=== PATIENT | male | born 1950 | race Caucasian/White ===

== ENCOUNTER → 2017-02-02 | Outpatient (CLI) | payer OTHER ==
[~2017-02-02] MED LIST: ALLO100T PO; AMLO5TAB2 PO; ASPI-146 PO; CALC1TAB12 PO; COMMODE 3-IN-11 MIS; CPMMACHINE; ENOX40IN SQ; LISI10TA3 PO; MIRA50TA PO; NORC5TAB PO; VITA1000 PO; WALKER WHEELS/F1 MIS
== END ==
LOC: CPRE 08:59
PROVIDERS: ATTEND Orthopaedic Surgery
DX: Z01.818 Encounter for other preprocedural examination (principal)

== ENCOUNTER 2017-02-18 06:33 | Inpatient (IN) | payer OTHER, MEDICARE ==
[~2017-02-18] VITALS: Ht 176.5 cm; Wt 120.5 kg
[~2017-02-18 06:33] MED LIST changes: -ASPI-146 PO; -COMMODE 3-IN-11 MIS; -CPMMACHINE; -ENOX40IN SQ; -NORC5TAB PO; -WALKER WHEELS/F1 MIS
--- NOTE | 2017-02-18 06:56 | HHI.DCPOC ---
Discharge Care Plan Diagnosis: (1) Primary localized osteoarthrosis, lower leg (2) Status post total knee replacement, left Your Health Problems Are: Difficulty with ADL Goals to Promote Your Health * To prevent worsening of your condition and complications * To maintain your health at the optimal level Directions to Meet Your Goals Take your medications as prescribed Follow your dietary instruction Follow activity as directed Keep your appointments as scheduled Take your immunizations and boosters as scheduled If your symptoms worsen call your PCP, if no PCP go to Urgent Care Center or Emergency Room Smoking is Dangerous to Your Health. Avoid second hand smoke Call the 24-hour hour crisis hotline for domestic abuse at Fabián Becerril Feb 18, 2017 06:56
[2017-02-18] MEDS ORDERED: VANCOMYCIN 1000 MG/NS 250 ML (for <70 kg) IV SCH ×2 (07:00)
[2017-02-18] MEDS ORDERED: POVIDONE IODINE 7.5% SCRUB 118 ML BOTTLE TOPICAL SCH (07:00)
[2017-02-18] MEDS ORDERED: ceFAZolin 2 GM PREMIX 50 ML IV SCH (07:00)
[2017-02-18] MEDS ORDERED: METOPROLOL TARTRATE 25 MG TAB PO PRN (07:15)
[2017-02-18] MEDS ORDERED: CHLORHEXIDINE GLUCONATE 2 % 1 PACK (2 CLOTHS) TOPICAL PRN (07:15)
[2017-02-18] MEDS ORDERED: INSULIN HUMAN REGULAR 1,000 UNITS/10 ML VIAL SQ PRN (07:15)
[2017-02-18] MEDS ORDERED: LACTATED RINGER'S 1000 ML IV PRN (07:15)
[2017-02-18] MEDS ORDERED: SODIUM CHLORID 0.9% 500 ML IV PRN (07:15)
[2017-02-18] MEDS ORDERED: POVIDONE IODINE 5% (ANTISEPSIS KIT) 4 APPLICATIONS EACH NARE PRN (07:15)
[2017-02-18] MEDS ORDERED: DEXAMETHASONE SOD PHOS 20 MG/5 ML VIAL IV SCH (07:15)
[2017-02-18] MEDS ORDERED: GENTAMICIN SULFATE 80 MG/2 ML VIAL ONE (09:32)
[2017-02-18] MEDS ORDERED: FAMOTIDINE 20 MG/2 ML VIAL ONE (09:40)
[2017-02-18] MEDS ORDERED: ACETAMINOPHEN 1000 MG/100 ML 100 ML IV ONE (09:40)
[2017-02-18] MEDS ORDERED: ROPIVACAINE PERI-ARTICULAR INJECTION. P-ARTICULR SCH ×5 (10:00)
[2017-02-18] MEDS ORDERED: TRANEXAMIC ACID IV SCH ×2 (10:00→14:00)
[2017-02-18] MEDS ORDERED: SODIUM CHLORIDE 0.9% IV SCH ×2 (10:00→14:00)
[2017-02-18] MEDS ORDERED: BUPIVACAINE HCL PF 0.5% 30 ML VIAL ONE (10:08)
[2017-02-18] MEDS ORDERED: GLYCOPYRROLATE 1 MG/5 ML SYRINGE IV PUSH ONE (12:00)
[2017-02-18] MEDS ORDERED: ONDANSETRON HCL 4 MG/2 ML VIAL IV PUSH ONE (12:00)
[2017-02-18] MEDS ORDERED: MIDAZOLAM HCL 2 MG/2 ML VIAL IV ONE (12:00)
[2017-02-18] MEDS ORDERED: NEOSTIGMINE 3 MG/3 ML SYR IV ONE (12:00)
[2017-02-18] MEDS ORDERED: ROCURONIUM INJ 50 MG/5 ML SYRINGE IV PUSH ONE (12:00)
[2017-02-18] MEDS ORDERED: ESMOLOL HCL 100 MG/10 ML VIAL IV ONE (12:00)
[2017-02-18] MEDS ORDERED: PHENYLEPH/NS 1000 MCG/10 ML SYR IV ONE (12:00)
[2017-02-18] MEDS ORDERED: LABETALOL HCL 100 MG/20 ML VIAL IV ONE (12:00)
[2017-02-18] MEDS ORDERED: LIDOCAINE HCL 1% PF 5 ML AMPULE OTHER ONE (12:00)
[2017-02-18] MEDS ORDERED: PROPOFOL 200 MG/20 ML AMP IV ONE (12:00)
--- NOTE | 2017-02-18 12:24 | PD.OP ---
cc: Fernando Olson MD Operative Report Date of Surgery: Feb 18, 2017 Preoperative Diagnosis: Left knee severe osteoarthritis Postoperative Diagnosis: Same Procedure: Left total knee arthroplasty Anesthesia: Gen. and adductor canal block Surgeon: Fernando Olson Post Closer(s): ERIN Galvan The surgical procedure was assisted by my Advanced Registered Nurse Practitioner. My TINNING EQUIPMENT TENDER presence was necessary throughout this case for the manipulation and positioning of the surgical extremity. My TINNING EQUIPMENT TENDER was assisting me throughout the duration of this procedure. The skill set of an Advance Registered Nurse Practitioner was medically necessary to complete this procedure. During the surgical case, the director medical surgical was working at the back table and the Advance Registered Nurse Practitioner was directly assisting me. Operation and Findings: IMPLANTS: DePuy Attune: Patella: size 38. Femur, posterior stabilized size 7. Tibia, rotating platform size 5. Tibial insert, rotating platform, posterior stabilized size 5 mm thickness. ESTIMATED BLOOD LOSS: 150 cc TOURNIQUET TIME: 56 minutes at 250 mmHg pressure. JUSTIFICATION FOR PROCEDURE: The patient has end-stage osteoarthritis to the knee. There is an attached conservative measures pathway form in the chart that describes the nonoperative measures that were undertaken prior to consideration of surgical management. The patient understood the risks and benefits of surgical management. See my office notes for further details PROCEDURE: The patient was brought back to the operative theatre. Adequate anesthesia was obtained. The patient received intravenous Ancef and vancomycin. The lower extremity was prepped and draped in the usual sterile fashion.The leg was exsanguinated, the tourniquet was raised. A standard anterior incision was performed followed by medial parapatellar arthrotomy was performed. End-stage arthritis was identified. Osteotomy of the patella was performed. We drilled holes for the patella. We trialed the patella component. We placed an intramedullary guide into the distal femur. We ultimately resected or 14 mm off of the distal femur in 5 degrees of valgus. The remnants of the ACL and PCL were resected. Osteotomy of the proximal tibia was performed, resecting 9 mm off of the medial side (after initial cut of 5 mm) . This was done with 3 degrees of posterior slope using an extramedullary guide. The distal end of the guide was placed in the mid aspect of the ankle. The femur was sized, and four chamfer cuts were completed in 3 of external rotation. We then cut the central box in the distal femur to replace the PCL. We resected the remnants of the menisci and removed osteophytes off of the femur and tibia. We then trialed the knee. We punched the tibia for the keel, and then used standard technique to cement in components. Excess cement was removed. We trialed the knee again and the final polyethylene thickness was chosen to provide extension to 0 degrees, and flexion of 140 degrees to gravity. The ligaments were appropriately balanced. Lateral release was necessary to obtain excellent patellofemoral tracking. The tourniquet was released and adequate hemostasis was obtained. An intra- articular injection of a ropivacaine cocktail was injected. The posterior knee was inspected for excess cement, which was removed. The final polyethylene was put into position after thorough irrigation. We then closed deep fascia with a #2 Stratafix followed by skin with 2-0 Vicryl followed by cliff. Postop plan is to weight-bear as tolerated. DVT prophylaxis will be performed with Adelina, JUDAH olra, early mobilization, and Lovenox followed by aspirin. Fernando Olson MD Feb 18, 2017 12:24
[2017-02-18] MEDS ORDERED: ASPI-146 PO (12:25)
[2017-02-18] MEDS ORDERED: NORC5TAB PO (12:25)
[2017-02-18] MEDS ORDERED: ENOX40IN SQ (12:25)
[2017-02-18] MEDS ORDERED: ONDANSETRON HCL 4 MG/2 ML VIAL IVP PRN (12:30)
[2017-02-18] MEDS ORDERED: MAGNESIUM HYDROXIDE SUSP 30 ML CUP PO PRN (12:30)
[2017-02-18] MEDS ORDERED: Post-op Orders (for Pharmacy) MISC XX ONE (12:30)
[2017-02-18] MEDS ORDERED: SODIUM CHLORIDE 0.9% FLUSH 5 ML FLUSH IVF PRN (12:30)
[2017-02-18] MEDS ORDERED: BISACODYL 10 MG SUPP RECTAL PRN (12:30)
[2017-02-18] MEDS ORDERED: NALOXONE HCL 0.4 MG/ML AMP IV PUSH PRN (12:30)
[2017-02-18] MEDS ORDERED: ALUMINUM/MAGNESIUM/SIMETH 30 ML CUP PO PRN (12:30)
[2017-02-18] MEDS ORDERED: diphenhydrAMINE HCL 50 MG/ML VIAL IV PUSH PRN (12:30)
[2017-02-18] MEDS ORDERED: ZOLPIDEM TARTRATE 5 MG TAB PO PRN (12:30)
[2017-02-18] MEDS ORDERED: DO NOT ADM ANY ANTICOAGULANT DRUGS PRN (12:39)
[2017-02-18] MEDS ORDERED: *RESP: ALBUTEROL 2.5 MG/3 ML NEB (PRN) PERIprocedural Use ONLY NEB ONE (12:59)
[2017-02-18] MEDS ORDERED: *MEPERIDINE 25 MG INJ VIAL PERIprocedural Use ONLY ONE (13:04)
[2017-02-18] MEDS ORDERED: *morphine SULFATE 8 MG/ML PERIprocedure ONLY ONE (13:47)
[2017-02-18] MEDS: SODIUM CHLOR 0.9% 1000 ML INJ 1,000 ML IV SCH ×2 (14:00→22:20)
--- NOTE | 2017-02-18 14:08 | RADRPT ---
EXAM DATE/TIME: 02/18/2017 13:18 [facility] COMPARISON: No previous studies available for comparison. INDICATIONS : Post op left total knee. MEDICAL HISTORY : None. SURGICAL HISTORY : None. ENCOUNTER: Initial ACUITY: 1 day PAIN SCORE: 10/10 LOCATION: Left Knee FINDINGS: 2 views of the knee show a total knee prosthesis in good position. No fracture or dislocation is obse rved. Soft tissue swelling is noted. Air and fluid noted within the joint. CONCLUSION: Total knee arthroplasty in good position. Isidoro Gorman Jr., MD on February 18, 2017 at 14:06 Board Certified Radiologist. This report was verified electronically.
--- NOTE | 2017-02-18 15:30 | PD.CONS ---
HPI Service [facility] Hospitalists Consult Requested By Orthopedic surgery Reason for Consult Medical management. Primary Care Physician Daniel Andrea MD (Paul) Diagnoses: (1) Osteoarthritis of left knee History of Present Illness Mr. Chaudhry is a pleasant 67 year old male with a history of gout, hypertension, prostate cancer who underwent elective left total knee arthroplasty today. He has been experiencing left knee pain despite conservative, non-surgical management. Hospitalist service was consulted for medical management. At the time of this interview at PACU, patient is doing well. No acute concerns. Denies any chest pain, shortness of breath, fever, chills. Denies any changes in bowel or bladder habits. Currently, pain is well controlled. Review of Systems Except as stated in HPI: all other systems reviewed are Neg Past Family Social History Allergies: Coded Allergies: No Known Allergies (Unverified , 02/18/17) Past Medical History Prostate cancer Left knee osteoarthritis Gout Hypertension Past Surgical History Right wrist surgery due to osteomyelitis Cholecystectomy Active Ordered Medications Current Medications Medications (Trade) Dose Ordered Sig/Whit Route Start Time Stop Time Status Last Admin (Betadine 7.5% Scrub) 1 applic ONCE TOPICAL 02/18/17 07:00 02/21/17 06:59 02/18/17 07:00 Cefazolin Sodium/ Dextrose 50 ml @ 100 mls/hr FLIGHT TEST DATA ACQUISITION TECHNICIAN IV 02/18/17 07:00 02/21/17 06:59 02/18/17 10:31 Vancomycin HCl 1000 mg/Sodium Chloride 250 ml @ 250 mls/hr FLIGHT TEST DATA ACQUISITION TECHNICIAN IV 02/18/17 07:00 02/21/17 06:59 02/18/17 10:31 (Decadron Inj) 10 mg FLIGHT TEST DATA ACQUISITION TECHNICIAN IV 02/18/17 07:15 02/18/17 23:59 02/18/17 07:41 Lactated Ringer's 1,000 ml @ 30 mls/hr Q24H PRN IV 02/18/17 07:15 02/21/17 07:14 02/18/17 07:30 Sodium Chloride 500 ml @ 30 mls/hr [id number] PRN IV 02/18/17 07:15 02/21/17 07:14 (Lopressor) 25 mg FLIGHT TEST DATA ACQUISITION TECHNICIAN PRN PO 02/18/17 07:15 02/21/17 07:14 (Betadine 5% Antisepsis Kit) 1 applic FLIGHT TEST DATA ACQUISITION TECHNICIAN PRN EACH NARE 02/18/17 07:15 02/21/17 07:14 (Chlorhexidine 2% Cloth) 3 pack FLIGHT TEST DATA ACQUISITION TECHNICIAN PRN TOPICAL 02/18/17 07:15 02/21/17 07:14 02/18/17 06:50 (NovoLIN R INJ) See Protocol Table ... FLIGHT TEST DATA ACQUISITION TECHNICIAN PRN SQ 02/18/17 07:15 02/21/17 07:14 (Zyloprim) 100 mg DAILY PO 02/19/17 09:00 (Norvasc) 5 mg DAILY PO 02/19/17 09:00 (Prinivil) 10 mg DAILY PO 02/19/17 09:00 ([place] La) 4 mg DAILY PO 02/19/17 09:00 Sodium Chloride 1,000 ml @ 100 mls/hr Q10H IV 02/18/17 12:20 02/18/17 14:00 (NS Flush) 2 ml UNSCH PRN IVF 02/18/17 12:30 (NS Flush) 2 ml BID IVF 02/18/17 21:00 Cefazolin Sodium 1000 mg/Sodium Chloride 100 ml @ 200 mls/hr Q6H IV 02/18/17 16:00 02/19/17 04:29 02/18/17 16:00 (Decadron Inj) 10 mg ONCE ONCE IV 02/19/17 07:45 02/19/17 07:46 (Lovenox Inj) 40 mg Q24H SQ 02/19/17 11:45 02/28/17 11:46 ([place] 5-325 Mg) 1 tab Q4H PRN PO 02/18/17 12:30 ([place] 5-325 Mg) 2 tab Q4H PRN PO 02/18/17 12:30 (Theragran M Tab) 1 tab BID PO 02/19/17 21:00 04/20/17 20:59 (Zofran Inj) 4 mg Q6H PRN IVP 02/18/17 12:30 (Colace) 100 mg BID PO 02/19/17 21:00 (Mag-Al Plus Susp Liq) 30 ml Q6H PRN PO 02/18/17 12:30 (Ambien) 5 mg HS PRN PO 02/18/17 12:30 (Dulcolax Supp) 10 mg DAILY PRN RECTAL 02/18/17 12:30 (Milk Of Magnesia Liq) 30 ml DAILY PRN PO 02/18/17 12:30 (Narcan Inj) 0.4 mg UNSCH PRN IV PUSH 02/18/17 12:30 (Benadryl Inj) 25 mg Q6H PRN IV PUSH 02/18/17 12:30 (Morphine Inj) 2 mg Q3H PRN IV PUSH 02/18/17 12:30 02/18/17 20:01 Miscellaneous Information ALL NURSING DEPARTME... UNSCH PRN .XX 02/18/17 12:39 02/19/17 12:38 Family History Father - heart disease. No family history of Alzheimer's or Parkinson's. Social History Patient quit smoking about 15 years ago. He drinks 4-5 martinis a day. Denies using illicit drugs. Physical Exam Vital Signs Vital Signs Date Time Temp Pulse Resp B/P (MAP) Pulse Ox O2 Delivery O2 Flow Rate FiO2 02/18/17 13:52 15 02/18/17 13:52 15 02/18/17 12:45 97.6 93 15 145/96 (112) 96 Simple Mask 8 Physical Exam GENERAL: This is a well-nourished, well-developed patient, in no apparent distress. SKIN: No rashes, ecchymoses or lesions. Warm and dry. HEAD: Atraumatic. Normocephalic. No temporal or scalp tenderness. EYES: Pupils equal round and reactive. No injection or drainage. ENT: Nose without bleeding, purulent drainage or septal hematoma. Airway patent. NECK: Trachea midline. No lymphadenopathy. Supple, nontender, no meningeal signs. CARDIOVASCULAR: Regular rate and rhythm without murmurs, gallops, or rubs. No JVD. RESPIRATORY: Clear to auscultation. Breath sounds equal bilaterally. No wheezes , rales, or rhonchi. GASTROINTESTINAL: Abdomen soft, non-tender, nondistended. No guarding. MUSCULOSKELETAL: Extremities without clubbing, cyanosis, or edema. s/p Left TKA. Able to move all toes. NEUROLOGICAL: Awake and alert. Cranial nerves II through XII intact. No focal neurological deficits. Normal speech. Imaging Last Impressions Knee X-Ray 02/18/17 1220 Signed Impressions: Service Date/Time: Saturday, February 18, 2017 13:18 - CONCLUSION: Total knee arthroplasty in good position. Isidoro Sherif Santoro MD Assessment and Plan Problem List: (1) Osteoarthritis of left knee ICD Code: M17.12 - Unilateral primary osteoarthritis, left knee (2) HTN (hypertension) ICD Code: I10 - Essential (primary) hypertension (3) History of prostate cancer ICD Code: Z85.46 - Personal history of malignant neoplasm of prostate Assessment and Plan Mr. Chaudhry is a pleasant 67 year old male with a history of left knee osteoarthritis refractory to non-surgical treatments, hypertension who underwent left total knee replacement. Post-surgery, patient is doing well. Pain is well controlled. No acute concerns. - Left knee osteoarthritis. - s/p Left TKA - [place] and Morphine PRN for pain management - Bowel regimen in place. - Lovenox 40mg Q24hrs starting 02/19/2017. - Hypertension - Amlodipine 5mg Qday, Lisinopril 10mg Qday. Currently normotensive. - Gout - Continue Allopurinol. - Hx of Prostate cancer. - Continue Tamsulosin. Full code. Lovenox starting 02/19/2017. Thank you for the consult. We will continue to follow this patient with you. Darcie Dinero DO Feb 18, 2017 15:30
[2017-02-18] MEDS: MORPHINE SULFATE 4 MG/ML INJ IV PUSH PRN ×2 (15:55→20:01)
--- NOTE | 2017-02-18 16:30 | HHI.FF ---
Face to Face Verification Diagnosis: (1) Primary localized osteoarthrosis, lower leg (2) Status post total knee replacement, left Physical Therapy Gait training, Transfer training, bed to chair Knee: Total knee Left LE Weight Bearing: WB as tolerated Left LE Range of Motion: Active ROM Nursing Nursing: Janice teaching, Dressing changes Dressing Changes: Daily dressing change I have seen patient Balwinder Chaudhry on 02/18/17. My clinical findings support the need for the requested home health care services because: Limited ability to care for self High risk of falls I certify that my clinical findings support that this patient is homebound because: Post-op weakness Unsteady gait/balance Fabián Becerril Feb 18, 2017 16:30
[2017-02-18] MEDS ORDERED: COMMODE 3-IN-11 MIS (16:32)
[2017-02-18] MEDS ORDERED: WALKER WHEELS/F1 MIS (16:32)
[2017-02-18] MEDS ORDERED: CPMMACHINE (16:32)
[2017-02-18 17:30] VITALS: BP_SYST 129; BP_SYST 98; BP_DIAS 58; BP_DIAS 64; PULSE 87; PULSE 91; RESP 18; TEMP 96.5; TEMP 98.8; O2SAT 100; O2SAT 93
[2017-02-18] MEDS: SODIUM CHLORIDE 0.9% FLUSH 5 ML FLUSH IVF SCH (20:01)
[2017-02-18 20:35] VITALS: BP 115/66; PULSE 80; RESP 17; TEMP 96.8; O2SAT 94
[2017-02-18] MEDS: ACETAMINOPHEN/HYDROcodone 325 MG/5 MG TAB PO PRN (23:41)
[2017-02-19 00:47] VITALS: BP 139/72; PULSE 77; RESP 18; TEMP 96.7; O2SAT 95
[2017-02-19] MEDS: ACETAMINOPHEN/HYDROcodone 325 MG/5 MG TAB PO PRN ×5 (03:46→19:24)
[2017-02-19 04:10] VITALS: BP 97/60; PULSE 71; RESP 18; TEMP 96.2; O2SAT 94
[2017-02-19 06:58] LABS: HEMATOCRIT 29.3 % (39.0-51.0); MEAN CELL VOLUME 106.5 FL (80.0-100.0); MEAN CORPUSCULAR HEMOGLOBIN 37.2 PG (27.0-34.0); MEAN CORPUSCULAR HGB CONC 34.9 % (32.0-36.0); PLATELET COUNT 160 TH/MM3 (150-450); RED BLOOD COUNT 2.75 MIL/MM3 (4.50-5.90); RED CELL DISTRIBUTION WIDTH 14.5 % (11.6-17.2); REVIEW FLAG FINAL; WHITE BLOOD COUNT 8.5 TH/MM3 (4.0-11.0)
[2017-02-19] MEDS ORDERED: DEXAMETHASONE SOD PHOS 20 MG/5 ML VIAL IV ONE (07:45)
[2017-02-19 07:57] VITALS: BP 127/73; PULSE 77; RESP 18; TEMP 96.5; O2SAT 93
[2017-02-19] MEDS: SODIUM CHLOR 0.9% 1000 ML INJ 1,000 ML IV SCH ×2 (08:20→18:20)
[2017-02-19] MEDS: SODIUM CHLORIDE 0.9% FLUSH 5 ML FLUSH IVF SCH (08:37)
[2017-02-19] MEDS ORDERED: LISINOPRIL 10 MG TAB PO SCH (09:00)
[2017-02-19] MEDS ORDERED: TAMSULOSIN HCL 0.4 MG CAP PO SCH (09:00)
[2017-02-19] MEDS ORDERED: TOLTERODINE TARTRATE 4 MG CAP LA PO SCH (09:00)
[2017-02-19] MEDS ORDERED: ALLOPURINOL 100 MG TAB PO SCH (09:00)
[2017-02-19] MEDS ORDERED: amLODIPine BESYLATE 5 MG TAB PO SCH (09:00)
[2017-02-19 09:51] VITALS: O2SAT 93
[2017-02-19] MEDS ORDERED: ENOXAPARIN SODIUM 40 MG/0.4 ML SYRINGE SQ SCH (11:45)
[2017-02-19 12:00] VITALS: BP 121/69; PULSE 85; RESP 18; TEMP 98; O2SAT 93
[2017-02-19 16:14] VITALS: RESP 16
--- NOTE | 2017-02-19 16:40 | PD.ORT.PN ---
Subjective Post Op Day #: 1 Subjective Remarks Patient is OOB in chair with moderate left knee and left calf pain. Patient has been ambulatory. Patient is anxious to go home. Objective Vitals Vital Signs Date Time Temp Pulse Resp B/P (MAP) Pulse Ox O2 Delivery O2 Flow Rate FiO2 02/19/17 16:14 16 02/19/17 12:00 98.0 85 18 121/69 (86) 93 02/19/17 11:46 16 02/19/17 09:51 93 02/19/17 07:57 96.5 77 18 127/73 (91) 93 02/19/17 04:10 96.2 71 18 97/60 (72) 94 02/19/17 00:47 96.7 77 18 139/72 (94) 95 02/18/17 20:35 96.8 80 17 115/66 (82) 94 02/18/17 17:30 96.5 87 18 129/58 (81) 93 02/18/17 17:00 97.5 65 16 126/68 (87) 95 Nasal Cannula 3 I/O 02/18/17 02/18/17 02/18/17 02/19/17 02/19/17 02/19/17 07:00 15:00 23:00 07:00 15:00 23:00 Intake Total 1512.05 ml 1479 ml 1089 ml Output Total 200 ml 0 ml 500 ml Balance 1312.05 ml 1479 ml 589 ml Intake Oral 480 ml 480 ml IV Total 112.05 ml 999 ml 609 ml Other 1400 ml Output Urine Total 50 ml 0 ml 500 ml Estimated Blood Loss 150 ml # Voids 0 1 # Bowel Movements 0 0 Result Diagram: 02/19/17 0615 Procedures Left TKA Objective Remarks Dressing changed today with scant serosanguineous drainage. Incision is well approximated with surgical clips intact. No redness or s/s of infection. Calf is tight and tender to palpation. + Babar's. EHL/TA/G intact. 2+ pedal pulse. + SILT. Assessment & Plan Ortho Post Op Day #: 1 Problem List: Assessment and Plan POD #1: Left TKA 1. WBAT LLE 2. Lovenox followed by ASA for DVT prophylaxis 3. Ice to the left knee PRN 4. STAT US of the left LE to r/o DVT 5. If US is negative patient is cleared for discharge home tonight with home health. If + call results to ERIN Trinidad 6. F/U in the office with Dr. Olson or ERIN Trinidad as previously scheduled. Fabián Becerril Feb 19, 2017 16:40
--- NOTE | 2017-02-19 16:59 | HHI.PR ---
Subjective Remarks Follow up for Left knee osteoarthritis s/p left TKA. Patient is currently doing well. No fever, chills. Sitting in his chair. Objective Vitals Vital Signs Date Time Temp Pulse Resp B/P (MAP) Pulse Ox O2 Delivery O2 Flow Rate FiO2 02/19/17 16:14 16 02/19/17 12:00 98.0 85 18 121/69 (86) 93 02/19/17 11:46 16 02/19/17 09:51 93 02/19/17 07:57 96.5 77 18 127/73 (91) 93 02/19/17 04:10 96.2 71 18 97/60 (72) 94 02/19/17 00:47 96.7 77 18 139/72 (94) 95 02/18/17 20:35 96.8 80 17 115/66 (82) 94 02/18/17 17:30 96.5 87 18 129/58 (81) 93 02/18/17 17:00 97.5 65 16 126/68 (87) 95 Nasal Cannula 3 I/O 02/18/17 02/18/17 02/18/17 02/19/17 02/19/17 02/19/17 07:00 15:00 23:00 07:00 15:00 23:00 Intake Total 1512.05 ml 1479 ml 1089 ml Output Total 200 ml 0 ml 500 ml Balance 1312.05 ml 1479 ml 589 ml Intake Oral 480 ml 480 ml IV Total 112.05 ml 999 ml 609 ml Other 1400 ml Output Urine Total 50 ml 0 ml 500 ml Estimated Blood Loss 150 ml # Voids 0 1 # Bowel Movements 0 0 Result Diagram: 02/19/17 0615 Imaging Last Impressions Lower Extremity Ultrasound 02/19/17 0000 Signed Impressions: Service Date/Time: February 17:10 - CONCLUSION: Normal examination. Isidoro Gorman Jr., MD Knee X-Ray 02/18/17 1220 Signed Impressions: Service Date/Time: Saturday, February 18, 2017 13:18 - CONCLUSION: Total knee arthroplasty in good position. Isidoro Gorman Jr., MD Objective Remarks GENERAL: Alert, Oriented x 3, NAD. SKIN: Warm and dry. HEAD: Normocephalic. EYES: No scleral icterus. No injection or drainage. NECK: Supple, trachea midline. No JVD or lymphadenopathy. CARDIOVASCULAR: Regular rate and rhythm without murmurs, gallops, or rubs. RESPIRATORY: Breath sounds equal bilaterally. No accessory muscle use. GASTROINTESTINAL: Abdomen soft, non-tender, nondistended. MUSCULOSKELETAL: No cyanosis, or edema. s/p Left TKA. BACK: Nontender without obvious deformity. No CVA tenderness. Procedures Left total knee arthroplasty on 02/18/2017. A/P Problem List: (1) Osteoarthritis of left knee ICD Code: M17.12 - Unilateral primary osteoarthritis, left knee (2) HTN (hypertension) ICD Code: I10 - Essential (primary) hypertension (3) History of prostate cancer ICD Code: Z85.46 - Personal history of malignant neoplasm of prostate Assessment and Plan Mr. Chaudhry is a pleasant 67 year old male with a history of left knee osteoarthritis refractory to non-surgical treatments, hypertension who underwent left total knee replacement. Post-surgery, patient is doing well. Pain is well controlled. No acute concerns. - Left knee osteoarthritis. - s/p Left TKA - [place] and Morphine PRN for pain management - Bowel regimen in place. - Lovenox 40mg Q24hrs starting 02/19/2017. - Hypertension - Amlodipine 5mg Qday, Lisinopril 10mg Qday. Currently normotensive. - Gout - Continue Allopurinol. - Hx of Prostate cancer. - Continue Tamsulosin. Full code. Lovenox Patient is likely being discharged today. Darcie Dinero DO Feb 19, 2017 16:59
--- NOTE | 2017-02-19 17:42 | RADRPT ---
EXAM DATE/TIME: 02/19/2017 17:10 [facility] COMPARISON: No previous studies available for comparison. INDICATIONS : Left knee swelling. MEDICAL HISTORY : Hypertension. Chronic obstructive pulmonary disease. Carcinoma, prostate. GOUT. SURGICAL HISTORY : Tonsillectomy. Right ganglion cyst removal. ENCOUNTER: Initial ACUITY: 1 day PAIN SCORE: 8/10 LOCATION: Left leg. TECHNIQUE: Venous ultrasound of the leg was performed from the inguinal ligament to the proximal calf. Real-willy e, color Doppler and spectral tracing, compression and augmentation techniques were used. FINDINGS: There is normal compressibility of the deep venous system from the inguinal region to the proximal ca lf. No echogenic clot is seen in the lumen of the common femoral, femoral, popliteal, and posterior tibial veins. There is a normal response of the venous system to proximal and distal augmentation an d respiration. CONCLUSION: Normal examination. Isidoro Gorman Jr., MD on February 19, 2017 at 17:39 Board Certified Radiologist. This report was verified electronically.
[2017-02-19] MEDS ORDERED: MULTIVITAMINS/MINERALS THERAPEUTIC TAB PO SCH (21:00)
[2017-02-19] MEDS ORDERED: DOCUSATE SODIUM 100 MG CAP PO SCH (21:00)
== END 2017-02-19 19:28 | disposition home or self-care (01) | DRG 470 ==
LOC: HSDI 06:33 → N06B 17:16
PROVIDERS: ADMIT Orthopaedic Surgery; ATTEND Orthopaedic Surgery
PROC: 0SRD0J9 Replacement of Left Knee Joint with Synthetic Substitute, Cemented, Open Approach (ICD-10-PCS; principal; 2017-02-18 10:08)
DX: M17.12 Unilateral primary osteoarthritis, left knee (principal); I10 Essential (primary) hypertension; E66.9 Obesity, unspecified; Z68.38 Body mass index [BMI] 38.0-38.9, adult; R73.03 Prediabetes; Z85.46 Personal history of malignant neoplasm of prostate; M10.9 Gout, unspecified
CPT/HCPCS: 73560; 85027; 86850; 86900; 86901; 93971; 94150; 94664; C1776; J0131; J0690; J0735; J1100; J1580; J1650; J1885; J2175; J2250; J2270; J2370; J2405; J2710; J2795; J3010; J3370; J7030; J7050; J7120; J7613; L1830

== ENCOUNTER 2017-04-29 05:36 | Inpatient (IN) | payer OTHER ==
[~2017-04-29] VITALS: Ht 175.3 cm; Wt 120.4 kg
[~2017-04-29 05:36] MED LIST changes: +CEPH500C PO; +NORC5TAB PO; +SULF1TAB23 PO; +WALKER WHEELS/F1 MIS
[2017-04-29] MEDS ORDERED: LACTATED RINGER'S 1000 ML IV PRN (06:15)
[2017-04-29] MEDS ORDERED: CHLORHEXIDINE GLUCONATE 2 % 1 PACK (2 CLOTHS) TOPICAL PRN (06:15)
[2017-04-29] MEDS ORDERED: METOPROLOL TARTRATE 25 MG TAB PO PRN (06:15)
[2017-04-29] MEDS ORDERED: POVIDONE IODINE 5% (ANTISEPSIS KIT) 4 APPLICATIONS EACH NARE PRN (06:15)
[2017-04-29] MEDS ORDERED: DEXAMETHASONE SOD PHOS 20 MG/5 ML VIAL IV PRN (06:15)
[2017-04-29] MEDS ORDERED: SODIUM CHLORID 0.9% 500 ML IV PRN (06:15)
[2017-04-29] MEDS ORDERED: POVIDONE IODINE 7.5% SCRUB 118 ML BOTTLE TOPICAL SCH (06:30)
[2017-04-29] MEDS ORDERED: ROPIVACAINE PERI-ARTICULAR INJECTION. P-ARTICULR SCH ×5 (06:30)
[2017-04-29] MEDS ORDERED: TRANEXAMIC ACID IV SCH ×2 (06:30→12:00)
[2017-04-29] MEDS ORDERED: SODIUM CHLORIDE 0.9% IV SCH ×2 (06:30→12:00)
[2017-04-29] MEDS ORDERED: ceFAZolin 2 GM PREMIX 50 ML IV SCH (06:30)
[2017-04-29] MEDS ORDERED: VANCOMYCIN 1000 MG/NS 250 ML (for <70 kg) IV SCH ×2 (06:30)
--- NOTE | 2017-04-29 06:51 | HHI.DCPOC ---
Discharge Care Plan Diagnosis: (1) Status post total knee replacement, right (2) Primary localized osteoarthrosis, lower leg Your Health Problems Are: Difficulty with ADL Goals to Promote Your Health * To prevent worsening of your condition and complications * To maintain your health at the optimal level Directions to Meet Your Goals Take your medications as prescribed Follow your dietary instruction Follow activity as directed Keep your appointments as scheduled Take your immunizations and boosters as scheduled If your symptoms worsen call your PCP, if no PCP go to Urgent Care Center or Emergency Room Smoking is Dangerous to Your Health. Avoid second hand smoke Call the 24-hour hour crisis hotline for domestic abuse at Fabián Becerril Apr 29, 2017 06:51
--- NOTE | 2017-04-29 06:52 | HHI.FF ---
Face to Face Verification Diagnosis: (1) Primary localized osteoarthrosis, lower leg (2) Status post total knee replacement, right Physical Therapy Gait training, Transfer training, bed to chair Knee: Total knee Right LE Weight Bearing: WB as tolerated Right LE Range of Motion: Active ROM Nursing Nursing: Janice teaching Dressing Changes: Do not change dressing Additional Instructions First dressing change in the office I have seen patient Balwinder Chaudhry on 04/29/17. My clinical findings support the need for the requested home health care services because: Limited ability to care for self High risk of falls I certify that my clinical findings support that this patient is homebound because: Post-op weakness Unsteady gait/balance Fabián Becerril Apr 29, 2017 06:52
[2017-04-29] MEDS ORDERED: COMMODE 3-IN-11 MIS (06:55)
[2017-04-29] MEDS ORDERED: WALKER WHEELS/F1 MIS (06:55)
[2017-04-29] MEDS ORDERED: CPMMACHINE (06:55)
[2017-04-29] MEDS ORDERED: VENTAER INH (07:00)
[2017-04-29] MEDS ORDERED: GENTAMICIN SULFATE 80 MG/2 ML VIAL ONE (07:06)
[2017-04-29] MEDS ORDERED: BUPIVACAINE LIPOSOME PF 1.3% 20 ML VIAL ONE (07:46)
[2017-04-29] MEDS ORDERED: FAMOTIDINE 20 MG/2 ML VIAL ONE (07:47)
--- NOTE | 2017-04-29 09:59 | PD.OP ---
cc: Fernando Olson MD Operative Report Date of Surgery: Apr 29, 2017 Preoperative Diagnosis: Right knee severe osteoarthritis Postoperative Diagnosis: Same Procedure: Right total knee arthroplasty Anesthesia: Adductor canal block and general Surgeon: Fernando Olson Filter Tank Operator(s): ERIN Galvan The surgical procedure was assisted by my Advanced Registered Nurse Practitioner. My MUSIC LIBRARY ASSISTANT presence was necessary throughout this case for the manipulation and positioning of the surgical extremity. My MUSIC LIBRARY ASSISTANT was assisting me throughout the duration of this procedure. The skill set of an Advance Registered Nurse Practitioner was medically necessary to complete this procedure. During the surgical case, the animal care technician was working at the back table and the Advance Registered Nurse Practitioner was directly assisting me. Operation and Findings: IMPLANTS: DePuy Attune: Patella: size 38. Femur, posterior stabilized size 6. Tibia, rotating platform size 6. Tibial insert, rotating platform, posterior stabilized size 5 mm thickness. ESTIMATED BLOOD LOSS: 100 cc TOURNIQUET TIME: 36 minutes at 250 mmHg pressure. JUSTIFICATION FOR PROCEDURE: The patient has end-stage osteoarthritis to the knee. There is an attached conservative measures pathway form in the chart that describes the nonoperative measures that were undertaken prior to consideration of surgical management. The patient understood the risks and benefits of surgical management. See my office notes for further details PROCEDURE: The patient was brought back to the operative theatre. Adequate anesthesia was obtained. The patient received intravenous vancomycin and Ancef. The lower extremity was prepped and draped in the usual sterile fashion.The leg was exsanguinated, the tourniquet was raised. A standard anterior incision was performed followed by medial parapatellar arthrotomy was performed. End-stage arthritis was identified. Osteotomy of the patella was performed. We drilled holes for the patella. We trialed the patella component. We placed an intramedullary guide into the distal femur. We ultimately resected 14 mm off of the distal femur in 5 degrees of valgus. The remnants of the ACL and PCL were resected. Osteotomy of the proximal tibia was performed, resecting 6 mm off of the medial side. This was done with 3 degrees of posterior slope using an extramedullary guide. The distal end of the guide was placed in the mid aspect of the ankle. The femur was sized, and four chamfer cuts were completed in 3 of external rotation. We then cut the central box in the distal femur to replace the PCL. We resected the remnants of the menisci and removed osteophytes off of the femur and tibia. We then trialed the knee. We punched the tibia for the keel, and then used standard technique to cement in components. Excess cement was removed. We trialed the knee again and the final polyethylene thickness was chosen to provide extension to 0 degrees, and flexion of 140 degrees to gravity. The ligaments were appropriately balanced. Lateral release was not necessary to obtain excellent patellofemoral tracking. The tourniquet was released and adequate hemostasis was obtained. An intra- articular injection of a ropivacaine cocktail was injected. The posterior knee was inspected for excess cement, which was removed. The final polyethylene was put into position after thorough irrigation. We then closed deep fascia with a #2 Stratafix followed by skin with 2-0 Vicryl followed by cliff. Postop plan is to weight-bear as tolerated. DVT prophylaxis will be performed with Adelina, JUDAH lora, early mobilization, and Lovenox followed by aspirin. Fernando Olson MD Apr 29, 2017 09:59
[2017-04-29] MEDS ORDERED: ALUMINUM/MAGNESIUM/SIMETH 30 ML CUP PO PRN (10:00)
[2017-04-29] MEDS ORDERED: NALOXONE HCL 0.4 MG/ML AMP IV PUSH PRN (10:00)
[2017-04-29] MEDS ORDERED: ONDANSETRON HCL 4 MG/2 ML VIAL IVP PRN (10:00)
[2017-04-29] MEDS ORDERED: ACETAMINOPHEN/HYDROcodone 325 MG/5 MG TAB PO PRN (10:00)
[2017-04-29] MEDS ORDERED: MAGNESIUM HYDROXIDE SUSP 30 ML CUP PO PRN (10:00)
[2017-04-29] MEDS ORDERED: BISACODYL 10 MG SUPP RECTAL PRN (10:00)
[2017-04-29] MEDS ORDERED: diphenhydrAMINE HCL 50 MG/ML VIAL IV PUSH PRN (10:00)
[2017-04-29] MEDS ORDERED: Post-op Orders (for Pharmacy) XX ONE (10:00)
[2017-04-29] MEDS ORDERED: DO NOT ADM ANY ANTICOAGULANT DRUGS PRN (10:22)
[2017-04-29] MEDS ORDERED: RESP: ALBUTEROL 1.25 MG/3 ML NEB (PRN) ONE (10:28)
[2017-04-29] MEDS: SODIUM CHLOR 0.9% 1000 ML INJ 1,000 ML IV SCH ×2 (10:30→20:10)
--- NOTE | 2017-04-29 11:11 | RADRPT ---
EXAM DATE/TIME: 04/29/2017 10:37 [place] COMPARISON: No previous studies available for comparison. INDICATIONS : Post op right total knee. MEDICAL HISTORY : Hypertension. Chronic obstructive pulmonary disease. Carcinoma, prostate.GOUT. SURGICAL HISTORY : Tonsillectomy. Right ganglion cyst removal. ENCOUNTER: Initial ACUITY: 1 day PAIN SCORE: 4/10 LOCATION: Right Knee FINDINGS: AP and lateral views of the right knee were obtained and demonstrate the patient is status post total knee arthroplasty. The femoral and tibial components are intact and in normal alignment. There are p ostoperative changes involving the patella. There is soft tissue swelling with gas noted anteriorly. There are multiple surgical skin cliff. CONCLUSION: Expected postoperative changes status post arthroplasty. Tyrel El MD on April 29, 2017 at 11:09 Board Certified Radiologist. This report was verified electronically.
[2017-04-29] MEDS ORDERED: GLYCOPYRROLATE 1 MG/5 ML SYRINGE IV PUSH ONE (12:00)
[2017-04-29] MEDS ORDERED: PHENYLEPH/NS 1000 MCG/10 ML SYR IV ONE (12:00)
[2017-04-29] MEDS ORDERED: ROCURONIUM INJ 50 MG/5 ML SYRINGE IV PUSH ONE (12:00)
[2017-04-29] MEDS ORDERED: LIDOCAINE HCL 1% PF 5 ML SYRINGE OTHER ONE (12:00)
[2017-04-29] MEDS ORDERED: LACTATED RINGER'S 1000 ML INJ 1,000 ML IV ONE (12:00)
[2017-04-29] MEDS ORDERED: NEOSTIGMINE 5 MG/5 ML SYRINGE IV PUSH ONE (12:00)
[2017-04-29] MEDS ORDERED: ESMOLOL HCL 100 MG/10 ML VIAL IV ONE (12:00)
[2017-04-29] MEDS ORDERED: ONDANSETRON HCL 4 MG/2 ML VIAL IV ONE (12:00)
[2017-04-29] MEDS ORDERED: ePHEDrine/NS 25 MG/5 ML SYRINGE IV ONE (12:00)
[2017-04-29] MEDS ORDERED: SODIUM CHLORIDE 0.9% 20 ML VIAL IV ONE (12:00)
[2017-04-29] MEDS ORDERED: ceFAZolin INJ 1,000 MG VIAL IV ONE (12:00)
[2017-04-29] MEDS ORDERED: PROPOFOL 200 MG/20 ML AMP IV ONE (12:00)
[2017-04-29 12:03] VITALS: BP 127/73; PULSE 87; RESP 17; TEMP 98.2; O2SAT 95
[2017-04-29] MEDS: ACETAMINOPHEN/HYDROcodone 325 MG/5 MG TAB PO PRN ×3 (12:06→22:49)
[2017-04-29] MEDS ORDERED: TOLTERODINE TARTRATE 4 MG CAP LA PO SCH (14:00)
--- NOTE | 2017-04-29 14:03 | PD.CONS ---
HPI Service [facility] Hospitalists Consult Requested By Orthopedic surgery Primary Care Physician Daniel Andrea MD (Paul) Diagnoses: History of Present Illness 67-year-old white male status post right knee arthroplasty; hospitalist consulted for medical management. Patient ultimately became a candidate for right knee replacement secondary to long-standing history of arthritis. Apart from his chronic arthritis, patient has no complaints. He denies any chest pain shortness of breath nausea vomiting or fevers. He states that his bowel movements are about twice a day. He recently had his left knee replaced about 2 months ago and says those are relatively unremarkable operation and recovery. Patient thinks that the AL diagnosed him with COPD and he does admit to using an albuterol inhaler occasionally. Prior to his same day surgery Center, the patient did receive a course of antibiotics including Keflex and Bactrim for presumed cellulitis somewhat on his left lower extremity which the patient ultimately concluded might have been due to a mild heat zuniga sitting next to a space heater which she states has cleared up. Review of Systems Except as stated in HPI: all other systems reviewed are Neg Past Family Social History Allergies: Coded Allergies: No Known Allergies (Unverified Allergy, Unknown, 04/29/17) Past Medical History Questionable COPD, Hypertension gout Past Surgical History left knee arthroplasty, cholecystectomy Family History No premature family history of coronary artery disease Social History Patient reports smoking about 1 pack a day from his teens until about 51 years of age. Physical Exam Vital Signs Vital Signs Date Time Temp Pulse Resp B/P (MAP) Pulse Ox O2 Delivery O2 Flow Rate FiO2 04/29/17 12:03 98.2 87 17 127/73 (91) 95 04/29/17 11:15 98.0 91 19 128/59 (82) 95 Nasal Cannula 2 04/29/17 11:00 94 20 117/58 (77) 97 04/29/17 10:45 93 17 113/57 (75) 90 Nasal Cannula 2 04/29/17 10:30 98.7 100 18 142/62 (88) 90 Simple Mask 6 04/29/17 06:15 98.7 99 20 133/68 (89) 93 Physical Exam VS: afebrile GENERAL: Elderly white male, obese, no acute distress, lying in bed, awake SKIN: Warm and dry. EYES: No scleral icterus. No injection or drainage. ENT: Normocephalic/atraumatic, nasal cannula in nose. CARDIOVASCULAR: Regular rate and rhythm. no murmurs RESPIRATORY: No accessory muscle use. Clear to auscultation. Breath sounds equal bilaterally. GASTROINTESTINAL: Abdomen soft, non-tender, nondistended. Extremities: No clubbing, cyanosis. Right lower extremity in postop knee arthroplasty dressing and brace; right foot is neurologically intact with motor and sensory function MUSCULOSKELETAL: Adequate muscle bulk and tone NEUROLOGICAL: Awake and alert. No obvious cranial nerve deficits. No facial droop nor slurred speech noted. PSYCHIATRIC: Appropriate mood and affect; insight and judgment normal. Imaging Last Impressions Knee X-Ray 04/29/17 0955 Signed Impressions: Service Date/Time: Saturday, April 29, 2017 10:37 - CONCLUSION: Expected postoperative changes status post arthroplasty. Tyrel El MD Assessment and Plan Assessment and Plan 67-year-old white male status post right knee arthroplasty - primary team managing pain meds. I recommend lovenox while inpatient for DVT prophylaxis followed by a NOAC (Xarelto, eliquis, Pradaxa, etc.) afterwards. htn - continue home lisinopril, amlodipine, and metoprolol Gout - Continue home allopurinol Possible COPD - Albuterol as needed for shortness of breath or wheezing Urinary symptoms - continue home Myrbetriq DC oxygen if sats 91% or higher. Lovenox Greyson Renee MD Apr 29, 2017 14:03
--- NOTE | 2017-04-29 14:18 | EKG ---
Date Performed: 04/29/2017 Time Performed: 07:27:10 PTAGE: 67 years EKG: Sinus rhythm WITH FIRST DEGREE AV BLOCK RIGHT BUNDLE BRANCH BLOCK LEFT ANTERIOR FASCICULAR BLOCK ABNORMAL ECG PREVIOUS TRACING : 06/25/2000 16.09 DOCTOR: Luis Palmer Interpretating Date/Time 04/29/2017 14:17:25
[2017-04-29 16:00] VITALS: BP 107/71; PULSE 82; RESP 18; TEMP 96.4; O2SAT 92
[2017-04-29] MEDS ORDERED: BENZOCAINE-MENTHOL (SUGAR FREE) 15 MG-3.6 MG LOZENGE BUCCAL PRN (18:15)
[2017-04-29 19:42] VITALS: BP 129/69; PULSE 81; RESP 17; TEMP 96.8; O2SAT 95
[2017-04-29] MEDS: CALCIUM/VITAMIN D 250 MG/125 U TAB PO SCH (20:09)
[2017-04-29] MEDS: CHOLECALCIFEROL (VIT D3) 1000 UNIT TAB PO SCH (20:09)
[2017-04-29] MEDS: MORPHINE SULFATE 2 MG/ML INJ IV PUSH PRN (20:10)
[2017-04-29 20:54] VITALS: O2SAT 96
[2017-04-29] MEDS ORDERED: ZOLPIDEM TARTRATE 5 MG TAB PO PRN (21:00)
[2017-04-30] VITALS: BP 129/75; PULSE 74; RESP 20; TEMP 96.1; O2SAT 95
[2017-04-30] MEDS: ACETAMINOPHEN/HYDROcodone 325 MG/5 MG TAB PO PRN ×3 (02:11→11:16)
[2017-04-30 04:00] VITALS: BP 142/79; PULSE 75; RESP 18; TEMP 95.2; O2SAT 92
[2017-04-30] MEDS: MORPHINE SULFATE 2 MG/ML INJ IV PUSH PRN ×2 (04:25→09:25)
[2017-04-30] MEDS: SODIUM CHLOR 0.9% 1000 ML INJ 1,000 ML IV SCH (05:47)
[2017-04-30 06:17] LABS: HEMATOCRIT 30.9 % (39.0-51.0); HEMOGLOBIN 10.2 GM/DL (13.0-17.0); MEAN CELL VOLUME 106.8 FL (80.0-100.0); MEAN CORPUSCULAR HEMOGLOBIN 35.3 PG (27.0-34.0); MEAN CORPUSCULAR HGB CONC 33.1 % (32.0-36.0); MEAN PLATELET VOLUME 6.7 FL (7.0-11.0); PLATELET COUNT 210 TH/MM3 (150-450); RED BLOOD COUNT 2.89 MIL/MM3 (4.50-5.90); RED CELL DISTRIBUTION WIDTH 14.4 % (11.6-17.2); WHITE BLOOD COUNT 10.1 TH/MM3 (4.0-11.0)
[2017-04-30] MEDS ORDERED: DEXAMETHASONE SOD PHOS 20 MG/5 ML VIAL IV ONE (07:45)
[2017-04-30 08:00] VITALS: BP 114/58; PULSE 80; RESP 16; TEMP 96; O2SAT 92
[2017-04-30] MEDS ORDERED: ALLOPURINOL 100 MG TAB PO SCH (09:00)
[2017-04-30] MEDS ORDERED: LISINOPRIL 10 MG TAB PO SCH (09:00)
[2017-04-30] MEDS ORDERED: amLODIPine BESYLATE 5 MG TAB PO SCH (09:00)
[2017-04-30] MEDS: CHOLECALCIFEROL (VIT D3) 1000 UNIT TAB PO SCH (09:19)
[2017-04-30] MEDS: CALCIUM/VITAMIN D 250 MG/125 U TAB PO SCH (09:20)
[2017-04-30] MEDS ORDERED: ENOXAPARIN SODIUM 40 MG/0.4 ML SYRINGE SQ SCH (09:30)
[2017-04-30 12:00] VITALS: BP 139/74; PULSE 90; RESP 16; TEMP 96.5; O2SAT 93
--- NOTE | 2017-04-30 12:04 | PD.ORT.PN ---
Subjective Post Op Day #: 1 Subjective Remarks Patient is OOB in chair. Patient reports minimal pain to the right knee. Patient has been ambulatory and is voiding without difficulty. Patient requesting to go home with home health today. Objective Vitals Vital Signs Date Time Temp Pulse Resp B/P (MAP) Pulse Ox O2 Delivery O2 Flow Rate FiO2 04/30/17 08:00 96.0 80 16 114/58 (76) 92 04/30/17 04:00 95.2 75 18 142/79 (100) 92 04/30/17 00:00 96.1 74 20 129/75 (93) 95 04/29/17 20:54 96 04/29/17 19:42 96.8 81 17 129/69 (89) 95 04/29/17 16:00 96.4 82 18 107/71 (83) 92 04/29/17 12:03 98.2 87 17 127/73 (91) 95 I/O 04/29/17 04/29/17 04/29/17 04/30/17 04/30/17 04/30/17 07:00 15:00 23:00 07:00 15:00 23:00 Intake Total 2160 ml 580 ml 240 ml Output Total 3100 ml Balance -940 ml 580 ml 240 ml Intake Oral 660 ml 480 ml 240 ml IV Total 1500 ml 100 ml Output Estimated Blood Loss 100 ml Other 3000 ml # Voids 0 1 2 # Bowel Movements 0 0 0 Result Diagram: 04/30/17 0526 Procedures Right TKA Objective Remarks Dressing is C/D/I. EHL/TA/G intact. 2+ DP pulse. Calf is soft and nontender. + SILT Assessment & Plan Ortho Post Op Day #: 1 Problem List: Assessment and Plan POD #1: Right TKA 1. WBAT RLE 2. Lovenox followed by ASA for DVT prophylaxis 3. Ice to the right knee PRN 4. Stable per ortho for discharge home with home health today. 5. F/U in the office with Dr. Olson or ERIN Trinidad as previously scheduled. Fabián Becerril Apr 30, 2017 12:04
[2017-04-30] MEDS ORDERED: MULTIVITAMINS/MINERALS THERAPEUTIC TAB PO SCH (21:00)
[2017-04-30] MEDS ORDERED: DOCUSATE SODIUM 100 MG CAP PO SCH (21:00)
== END 2017-04-30 13:00 | disposition home health service (06) | DRG 470 ==
LOC: HSDI 05:36 → N06B 11:46
PROVIDERS: ADMIT Orthopaedic Surgery; ATTEND Orthopaedic Surgery
PROC: 3E0T3BZ Introduction of Anesthetic Agent into Peripheral Nerves and Plexi, Percutaneous Approach (ICD-10-PCS; 2017-04-29)
PROC: 0SRC0J9 Replacement of Right Knee Joint with Synthetic Substitute, Cemented, Open Approach (ICD-10-PCS; principal; 2017-04-29 08:00)
DX: M17.11 Unilateral primary osteoarthritis, right knee (principal); J44.9 Chronic obstructive pulmonary disease, unspecified; I10 Essential (primary) hypertension; M25.761 Osteophyte, right knee; M79.609 Pain in unspecified limb; M10.9 Gout, unspecified; E66.9 Obesity, unspecified; Z68.39 Body mass index [BMI] 39.0-39.9, adult; Z87.891 Personal history of nicotine dependence; Z85.46 Personal history of malignant neoplasm of prostate; Z96.652 Presence of left artificial knee joint
CPT/HCPCS: 73560; 76937; 85027; 86850; 86900; 86901; 93005; 94150; C1776; C9290; J0690; J0735; J1100; J1580; J1650; J1885; J2270; J2370; J2405; J2710; J2795; J3370; J7030; J7050; J7120; J7613; L1830

== ENCOUNTER 2018-04-02 13:26 | Inpatient (IN) ==
--- NOTE | 2018-04-02 14:42 | ED ---
HPI General Chief complaint: Recheck/Abnormal Lab/Rx Stated complaint: dec sent/abnl labs Time Seen by Provider: 04/02/18 14:25 Source: patient Mode of arrival: ambulatory Limitations: no limitations History of Present Illness HPI narrative: 68yo M with gout, prostate CA, HTN presents to the ED because he received a call today from his doctor's office for abnormal results and to come straight to the ED. Thinks it was calcium and maybe BUN but unsure. Said he has appointment with his bin packer Dr. Toro today but was told to come here instead. Pt went to his primary care physician yesterday because he has been having worsening swelling in bilateral legs. Said they doubled his lasix 3 days ago from 20mg BID to 40mg BID. Denies any fever, chest pain, sob, n/v, abdominal pain, focal weakness or numbness. Related Data Home Medications Medication Instructions Recorded Confirmed acetaminophen 325 mg PO Q4-6H PRN 04/02/18 04/02/18 allopurinol 150 mg PO BID 04/02/18 04/02/18 calcium carbonate-vitamin D3 1 tab PO BID 04/02/18 04/02/18 [Calcium 500 + D (D3)] cholecalciferol (vitamin D3) 2,000 unit PO DAILY 04/02/18 04/02/18 furosemide [Lasix] 20 mg PO BID 04/02/18 04/02/18 guaifenesin 600 mg PO Q12H 04/02/18 04/02/18 ipratropium-albuterol [Combivent 1 puff INHALATION QID 04/02/18 04/02/18 Respimat] lisinopril 40 mg PO BID 04/02/18 04/02/18 meloxicam 15 mg PO DAILY 04/02/18 04/02/18 mirabegron [Myrbetriq] 50 mg PO DAILY 04/02/18 04/02/18 omega-3 fatty acids-fish oil [Fish 1 cap PO HS 04/02/18 04/02/18 Oil] tamsulosin 0.4 mg PO BID 04/02/18 04/02/18 Allergies Allergy/AdvReac Type Severity Reaction Status Date / Time No Known Allergies Allergy Verified 04/02/18 14:05 Review of Systems ROS: all other systems reviewed are negative [facility] Family History Family History Father Heart disease Social History Social History Substance History: No History of Abuse Second Hand Smoke Exposure: No Smoking Status: Former smoker How Often Do You Have a Drink Containing Alcohol: 4 or more times a week Recent Travel in [facility] within the Last 8 Weeks: No Recent Out of Country Travel within the Last 8 Weeks: No Immunization History Tetanus Immunization: Unsure Exam Narrative Exam Narrative: GENERAL: 68yo F not in distress. SKIN: Focused skin assessment warm/dry. HEAD: Atraumatic. Normocephalic. EYES: Pupils equal and round. No scleral icterus. No injection or drainage. ENT: No nasal bleeding or discharge. Mucous membranes pink and moist. NECK: Trachea midline. No JVD. CARDIOVASCULAR: Regular rate and rhythm. No murmur appreciated. RESPIRATORY: No accessory muscle use. Clear to auscultation. Breath sounds equal bilaterally. GASTROINTESTINAL: Abdomen soft, non-tender, nondistended. MUSCULOSKELETAL: Bilateral lower extremity edema with some erythema bilateral foot and ankle. DP 2+. NEUROLOGICAL: Awake and alert. No obvious cranial nerve deficits. Motor grossly within normal limits. Normal speech. PSYCHIATRIC: Appropriate mood and affect; insight and judgment normal. Course Initial Documented Vital Signs Temperature 97.8 F 04/02/18 13:50 Pulse Rate 103 H 04/02/18 13:50 Respiratory Rate 18 04/02/18 13:50 Blood Pressure 149/67 H 04/02/18 13:50 Pulse Oximetry 100 04/02/18 13:50 Last Documented Vital Signs Temperature 98.3 F 04/05/18 08:00 Pulse Rate 86 04/05/18 09:01 Respiratory Rate 16 04/05/18 09:01 Blood Pressure 133/72 04/05/18 08:00 Pulse Oximetry 95 04/05/18 08:00 Medical Decision Making MDM Narrative Medical decision making narrative: 68yo M here because of abnormal lab results. Labs reviewed, no leukocytosis. H/H low at 11.6/32.5 which is at baseline. Mild hyponatremia at 132. BUN/creatine elevated at 85/3.50. Pt said he does have CKD stage 3 but follows [facility] so does not know his baseline. Corrected calcium is elevated at 12.5. Pt given NS IVF. BNP normal at 24. Discussed with Dr. Madrid and accepted to her service. Medical Screen Exam Complete: Yes Emergency Medical Condition: Yes Differential Diagnosis Differential Diagnosis: Hypercalcemia vs. dehydration vs. liver disease vs. kidney disease vs. fluid overload Lab Data Result diagrams: 04/03/18 05:32 04/05/18 05:08 Lab Results 04/02/18 04/02/18 04/02/18 Range/Units 14:30 14:30 14:30 WBC 7.1 (4.0-11.0) th/mm3 RBC 3.05 L (4.50-5.90) mil/mm3 Hgb 11.6 L (13.0-17.0) gm/dL Hct 32.5 L (39.0-51.0) % MCV 106.5 H (80.0-100.0) fL MCH 37.8 H (27.0-34.0) pg MCHC 35.5 (32.0-36.0) % RDW 14.7 (11.6-17.2) % Plt Count 175 (150-450) th/mm3 MPV 7.6 (7.0-11.0) fL Neut % (Auto) 71.4 H (16.0-70.0) % Lymph % (Auto) 11.5 (9.0-44.0) % [place] % (Auto) 14.7 H (0.0-8.0) % Eos % (Auto) 1.8 (0.0-4.0) % Baso % (Auto) 0.6 (0.0-2.0) % Neut # (Auto) 5.0 (1.8-7.7) th/mm3 Lymph # (Auto) 0.8 L (1.0-4.8) th/mm3 [place] # (Auto) 1.0 H (0.0-0.9) th/mm3 Eos # (Auto) 0.1 (0.0-0.4) th/mm3 Baso # (Auto) 0.0 (0.0-0.2) th/mm3 WBC Differential . Differential Comment Auto diff final Sodium 132 L (136-145) meq/L Potassium 4.1 (3.5-5.1) meq/L Chloride 91 L (98-107) meq/L Carbon Dioxide 29.9 (21.0-32.0) meq/L Anion Gap 11 (5-15) meq/L BUN 85 H (7-18) mg/dL Creatinine 3.50 H (0.60-1.30) mg/dL Estimated GFR 18 L (>89) mL/min POC Glucose (68-110) mg/dl Random Glucose 111 H (74-106) mg/dL Calcium 12.4 H* (8.5-10.1) mg/dL Calcium Adj for Albumin 12.5 H* (8.5-10.1) mg/dL Total Bilirubin 0.7 (0.2-1.0) mg/dL AST 48 H (15-37) U/L ALT 51 (12-78) U/L Alkaline Phosphatase 61 (45-117) U/L B-Natriuretic Peptide 24 (0-100) pg/mL Total Protein 7.1 (6.4-8.2) g/dL Total Protein (PEP) (6.4-8.2) gm/dL Albumin 3.7 (3.4-5.0) g/dL Vitamin B12 (193-986) pg/mL Folate (3.1-17.5) ng/mL TSH (0.358-3.740) uIU/mL PTH Intact (12.4-76.8) pg/mL Urine Color (Yellw/Straw) Urine Clarity (Clear) Urine pH (5.0-8.5) Ur Specific [place] (1.002-1.035) Urine Protein (Neg-Trace) mg/dL Urine Glucose (UA) (Negative) mg/dL Urine Ketones (Negative) mg/dL Urine Occult Blood (Negative) Urine Nitrate (Negative) Urine Bilirubin (Negative) Urine Urobilinogen (Less than 2) mg/dL Ur Leukocyte Esterase (Negative) Urine WBC (0-5) /hpf Micro UA Comment Ur Microscopic Review Urine Culture Comments 04/02/18 04/03/18 04/03/18 Range/Units 23:32 05:32 05:37 WBC 4.9 (4.0-11.0) th/mm3 RBC 2.79 L (4.50-5.90) mil/mm3 Hgb 10.4 L (13.0-17.0) gm/dL Hct 29.8 L (39.0-51.0) % MCV 106.8 H (80.0-100.0) fL MCH 37.4 H (27.0-34.0) pg MCHC 35.0 (32.0-36.0) % RDW 14.5 (11.6-17.2) % Plt Count 154 (150-450) th/mm3 MPV 7.3 (7.0-11.0) fL Neut % (Auto) 61.4 (16.0-70.0) % Lymph % (Auto) 19.6 (9.0-44.0) % [place] % (Auto) 14.5 H (0.0-8.0) % Eos % (Auto) 3.8 (0.0-4.0) % Baso % (Auto) 0.7 (0.0-2.0) % Neut # (Auto) 3.0 (1.8-7.7) th/mm3 Lymph # (Auto) 1.0 (1.0-4.8) th/mm3 [place] # (Auto) 0.7 (0.0-0.9) th/mm3 Eos # (Auto) 0.2 (0.0-0.4) th/mm3 Baso # (Auto) 0.0 (0.0-0.2) th/mm3 WBC Differential . Differential Comment Auto diff final Sodium 139 (136-145) meq/L Potassium 4.0 (3.5-5.1) meq/L Chloride 100 D (98-107) meq/L Carbon Dioxide 31.7 (21.0-32.0) meq/L Anion Gap 7 (5-15) meq/L BUN 75 H (7-18) mg/dL Creatinine 2.75 H (0.60-1.30) mg/dL Estimated GFR 23 L (>89) mL/min POC Glucose 121 H (68-110) mg/dl Random Glucose 109 H (74-106) mg/dL Calcium 11.4 H D (8.5-10.1) mg/dL Calcium Adj for Albumin (8.5-10.1) mg/dL Total Bilirubin (0.2-1.0) mg/dL AST (15-37) U/L ALT (12-78) U/L Alkaline Phosphatase (45-117) U/L B-Natriuretic Peptide (0-100) pg/mL Total Protein (6.4-8.2) g/dL Total Protein (PEP) (6.4-8.2) gm/dL Albumin (3.4-5.0) g/dL Vitamin B12 (193-986) pg/mL Folate (3.1-17.5) ng/mL TSH (0.358-3.740) uIU/mL PTH Intact (12.4-76.8) pg/mL Urine Color (Yellw/Straw) Urine Clarity (Clear) Urine pH (5.0-8.5) Ur Specific [place] (1.002-1.035) Urine Protein (Neg-Trace) mg/dL Urine Glucose (UA) (Negative) mg/dL Urine Ketones (Negative) mg/dL Urine Occult Blood (Negative) Urine Nitrate (Negative) Urine Bilirubin (Negative) Urine Urobilinogen (Less than 2) mg/dL Ur Leukocyte Esterase (Negative) Urine WBC (0-5) /hpf Micro UA Comment Ur Microscopic Review Urine Culture Comments 04/03/18 04/03/18 04/03/18 Range/Units 05:37 05:37 08:13 WBC (4.0-11.0) th/mm3 RBC (4.50-5.90) mil/mm3 Hgb (13.0-17.0) gm/dL Hct (39.0-51.0) % MCV (80.0-100.0) fL MCH (27.0-34.0) pg MCHC (32.0-36.0) % RDW (11.6-17.2) % Plt Count (150-450) th/mm3 MPV (7.0-11.0) fL Neut % (Auto) (16.0-70.0) % Lymph % (Auto) (9.0-44.0) % [place] % (Auto) (0.0-8.0) % Eos % (Auto) (0.0-4.0) % Baso % (Auto) (0.0-2.0) % Neut # (Auto) (1.8-7.7) th/mm3 Lymph # (Auto) (1.0-4.8) th/mm3 [place] # (Auto) (0.0-0.9) th/mm3 Eos # (Auto) (0.0-0.4) th/mm3 Baso # (Auto) (0.0-0.2) th/mm3 WBC Differential Differential Comment Sodium (136-145) meq/L Potassium (3.5-5.1) meq/L Chloride (98-107) meq/L Carbon Dioxide (21.0-32.0) meq/L Anion Gap (5-15) meq/L BUN (7-18) mg/dL Creatinine (0.60-1.30) mg/dL Estimated GFR (>89) mL/min POC Glucose 110 (68-110) mg/dl Random Glucose (74-106) mg/dL Calcium (8.5-10.1) mg/dL Calcium Adj for Albumin (8.5-10.1) mg/dL Total Bilirubin (0.2-1.0) mg/dL AST (15-37) U/L ALT (12-78) U/L Alkaline Phosphatase (45-117) U/L B-Natriuretic Peptide (0-100) pg/mL Total Protein (6.4-8.2) g/dL Total Protein (PEP) 5.9 L (6.4-8.2) gm/dL Albumin (3.4-5.0) g/dL Vitamin B12 1369 H (193-986) pg/mL Folate 17.3 (3.1-17.5) ng/mL TSH 2.700 (0.358-3.740) uIU/mL PTH Intact 12.9 (12.4-76.8) pg/mL Urine Color (Yellw/Straw) Urine Clarity (Clear) Urine pH (5.0-8.5) Ur Specific [place] (1.002-1.035) Urine Protein (Neg-Trace) mg/dL Urine Glucose (UA) (Negative) mg/dL Urine Ketones (Negative) mg/dL Urine Occult Blood (Negative) Urine Nitrate (Negative) Urine Bilirubin (Negative) Urine Urobilinogen (Less than 2) mg/dL Ur Leukocyte Esterase (Negative) Urine WBC (0-5) /hpf Micro UA Comment Ur Microscopic Review Urine Culture Comments 04/03/18 04/03/18 04/03/18 Range/Units 11:24 16:28 21:37 WBC (4.0-11.0) th/mm3 RBC (4.50-5.90) mil/mm3 Hgb (13.0-17.0) gm/dL Hct (39.0-51.0) % MCV (80.0-100.0) fL MCH (27.0-34.0) pg MCHC (32.0-36.0) % RDW (11.6-17.2) % Plt Count (150-450) th/mm3 MPV (7.0-11.0) fL Neut % (Auto) (16.0-70.0) % Lymph % (Auto) (9.0-44.0) % [place] % (Auto) (0.0-8.0) % Eos % (Auto) (0.0-4.0) % Baso % (Auto) (0.0-2.0) % Neut # (Auto) (1.8-7.7) th/mm3 Lymph # (Auto) (1.0-4.8) th/mm3 [place] # (Auto) (0.0-0.9) th/mm3 Eos # (Auto) (0.0-0.4) th/mm3 Baso # (Auto) (0.0-0.2) th/mm3 WBC Differential Differential Comment Sodium (136-145) meq/L Potassium (3.5-5.1) meq/L Chloride (98-107) meq/L Carbon Dioxide (21.0-32.0) meq/L Anion Gap (5-15) meq/L BUN (7-18) mg/dL Creatinine (0.60-1.30) mg/dL Estimated GFR (>89) mL/min POC Glucose 176 H 135 H 118 H (68-110) mg/dl Random Glucose (74-106) mg/dL Calcium (8.5-10.1) mg/dL Calcium Adj for Albumin (8.5-10.1) mg/dL Total Bilirubin (0.2-1.0) mg/dL AST (15-37) U/L ALT (12-78) U/L Alkaline Phosphatase (45-117) U/L B-Natriuretic Peptide (0-100) pg/mL Total Protein (6.4-8.2) g/dL Total Protein (PEP) (6.4-8.2) gm/dL Albumin (3.4-5.0) g/dL Vitamin B12 (193-986) pg/mL Folate (3.1-17.5) ng/mL TSH (0.358-3.740) uIU/mL PTH Intact (12.4-76.8) pg/mL Urine Color (Yellw/Straw) Urine Clarity (Clear) Urine pH (5.0-8.5) Ur Specific [place] (1.002-1.035) Urine Protein (Neg-Trace) mg/dL Urine Glucose (UA) (Negative) mg/dL Urine Ketones (Negative) mg/dL Urine Occult Blood (Negative) Urine Nitrate (Negative) Urine Bilirubin (Negative) Urine Urobilinogen (Less than 2) mg/dL Ur Leukocyte Esterase (Negative) Urine WBC (0-5) /hpf Micro UA Comment Ur Microscopic Review Urine Culture Comments 04/04/18 04/04/18 04/04/18 Range/Units 06:49 15:20 16:16 WBC (4.0-11.0) th/mm3 RBC (4.50-5.90) mil/mm3 Hgb (13.0-17.0) gm/dL Hct (39.0-51.0) % MCV (80.0-100.0) fL MCH (27.0-34.0) pg MCHC (32.0-36.0) % RDW (11.6-17.2) % Plt Count (150-450) th/mm3 MPV (7.0-11.0) fL Neut % (Auto) (16.0-70.0) % Lymph % (Auto) (9.0-44.0) % [place] % (Auto) (0.0-8.0) % Eos % (Auto) (0.0-4.0) % Baso % (Auto) (0.0-2.0) % Neut # (Auto) (1.8-7.7) th/mm3 Lymph # (Auto) (1.0-4.8) th/mm3 [place] # (Auto) (0.0-0.9) th/mm3 Eos # (Auto) (0.0-0.4) th/mm3 Baso # (Auto) (0.0-0.2) th/mm3 WBC Differential Differential Comment Sodium 142 (136-145) meq/L Potassium 3.7 (3.5-5.1) meq/L Chloride 106 (98-107) meq/L Carbon Dioxide 29.3 (21.0-32.0) meq/L Anion Gap 7 (5-15) meq/L BUN 47 H (7-18) mg/dL Creatinine 2.30 H (0.60-1.30) mg/dL Estimated GFR 29 L (>89) mL/min POC Glucose 134 H (68-110) mg/dl Random Glucose 112 H (74-106) mg/dL Calcium 10.0 D (8.5-10.1) mg/dL Calcium Adj for Albumin (8.5-10.1) mg/dL Total Bilirubin (0.2-1.0) mg/dL AST (15-37) U/L ALT (12-78) U/L Alkaline Phosphatase (45-117) U/L B-Natriuretic Peptide (0-100) pg/mL Total Protein (6.4-8.2) g/dL Total Protein (PEP) (6.4-8.2) gm/dL Albumin (3.4-5.0) g/dL Vitamin B12 (193-986) pg/mL Folate (3.1-17.5) ng/mL TSH (0.358-3.740) uIU/mL PTH Intact (12.4-76.8) pg/mL Urine Color Yellow (Yellw/Straw) Urine Clarity Clear (Clear) Urine pH 8.0 (5.0-8.5) Ur Specific [place] 1.011 (1.002-1.035) Urine Protein 30 H (Neg-Trace) mg/dL Urine Glucose (UA) 150 H (Negative) mg/dL Urine Ketones Negative (Negative) mg/dL Urine Occult Blood Small H (Negative) Urine Nitrate Negative (Negative) Urine Bilirubin Negative (Negative) Urine Urobilinogen Less than 2 (Less than 2) mg/dL Ur Leukocyte Esterase Negative (Negative) Urine WBC 1 (0-5) /hpf Micro UA Comment Culture not ind Ur Microscopic Review Not Reportable Urine Culture Comments Culture not ind 04/04/18 04/05/18 04/05/18 Range/Units 21:24 05:08 08:13 WBC (4.0-11.0) th/mm3 RBC (4.50-5.90) mil/mm3 Hgb (13.0-17.0) gm/dL Hct (39.0-51.0) % MCV (80.0-100.0) fL MCH (27.0-34.0) pg MCHC (32.0-36.0) % RDW (11.6-17.2) % Plt Count (150-450) th/mm3 MPV (7.0-11.0) fL Neut % (Auto) (16.0-70.0) % Lymph % (Auto) (9.0-44.0) % [place] % (Auto) (0.0-8.0) % Eos % (Auto) (0.0-4.0) % Baso % (Auto) (0.0-2.0) % Neut # (Auto) (1.8-7.7) th/mm3 Lymph # (Auto) (1.0-4.8) th/mm3 [place] # (Auto) (0.0-0.9) th/mm3 Eos # (Auto) (0.0-0.4) th/mm3 Baso # (Auto) (0.0-0.2) th/mm3 WBC Differential Differential Comment Sodium 141 (136-145) meq/L Potassium 3.8 (3.5-5.1) meq/L Chloride 108 H (98-107) meq/L Carbon Dioxide 27.8 (21.0-32.0) meq/L Anion Gap 5 (5-15) meq/L BUN 35 H (7-18) mg/dL Creatinine 2.14 H (0.60-1.30) mg/dL Estimated GFR 31 L (>89) mL/min POC Glucose 133 H 119 H (68-110) mg/dl Random Glucose 104 (74-106) mg/dL Calcium 9.5 (8.5-10.1) mg/dL Calcium Adj for Albumin (8.5-10.1) mg/dL Total Bilirubin (0.2-1.0) mg/dL AST (15-37) U/L ALT (12-78) U/L Alkaline Phosphatase (45-117) U/L B-Natriuretic Peptide (0-100) pg/mL Total Protein (6.4-8.2) g/dL Total Protein (PEP) (6.4-8.2) gm/dL Albumin (3.4-5.0) g/dL Vitamin B12 (193-986) pg/mL Folate (3.1-17.5) ng/mL TSH (0.358-3.740) uIU/mL PTH Intact (12.4-76.8) pg/mL Urine Color (Yellw/Straw) Urine Clarity (Clear) Urine pH (5.0-8.5) Ur Specific [place] (1.002-1.035) Urine Protein (Neg-Trace) mg/dL Urine Glucose (UA) (Negative) mg/dL Urine Ketones (Negative) mg/dL Urine Occult Blood (Negative) Urine Nitrate (Negative) Urine Bilirubin (Negative) Urine Urobilinogen (Less than 2) mg/dL Ur Leukocyte Esterase (Negative) Urine WBC (0-5) /hpf Micro UA Comment Ur Microscopic Review Urine Culture Comments Imaging Data Radiologist's impression: Abdomen/Bladder Ultrasound 04/02/18 00:00 CONCLUSION: 1. No evidence of hydronephrosis. 2. Bilateral benign-appearing renal cysts. 3. No new or significant changes compared to the prior exam. Chest X-Ray 04/02/18 00:00 CONCLUSION: No acute intrathoracic disease. Stable examination. Venous Doppler Study 04/03/18 00:00 CONCLUSION: No venous thrombosis is identified within either lower extremity. ECG Data EKG Prior to Arrival: No Attestation: I personally reviewed and interpreted this ECG as follows: Interpretation: NSR 91bpm. LAD. QTc 434ms. No significant ST elevation or depression. RBBB. Discharge Plan Discharge Disposition Patient Disposition: 30 Still Patient Discharge Condition Condition: Stable Discharge Order Discharge Orders: Discharge Order (Routine); Ordered 04/05/18 Ordered By: Cinthia Waldron Discharge Details Anticipated Discharge Date: 04/05/18 Diagnosis: Hypercalcemia Physicians Team ED Provider: Milena Piña Primary Care Provider: UNKNOWN, Attending Provider: Hardy Abebe Other Providers: Winifred Villanueva Status ED Status: Left Department Discharge Information Discharge Date/Time: 04/02/18 19:32
[2018-04-02 15:01] LABS: Baso % (Auto) 0.6 % (0.0-2.0); Eos # (Auto) 0.1 th/mm3 (0.0-0.4); Eos % (Auto) 1.8 % (0.0-4.0); Hematocrit 32.5 % (39.0-51.0); Hemoglobin 11.6 gm/dL (13.0-17.0); Lymph # (Auto) 0.8 th/mm3 (1.0-4.8); Lymph % (Auto) 11.5 % (9.0-44.0); Mean Corpuscular HGB Conc 35.5 % (32.0-36.0); Mean Corpuscular Hemoglobin 37.8 pg (27.0-34.0); Mean Corpuscular Volume 106.5 fL (80.0-100.0); Mean Platelet Volume 7.6 fL (7.0-11.0); Mono % (Auto) 14.7 % (0.0-8.0); Neut % (Auto) 71.4 % (16.0-70.0); Platelet Count 175 th/mm3 (150-450); Red Blood Count 3.05 mil/mm3 (4.50-5.90); Red Cell Distribution Width 14.7 % (11.6-17.2); White Blood Count 7.1 th/mm3 (4.0-11.0)
[2018-04-02 15:31] LABS: Albumin 3.7 g/dL (3.4-5.0); Calcium 12.4 mg/dL (8.5-10.1); Carbon Dioxide 29.9 meq/L (21.0-32.0); Potassium 4.1 meq/L (3.5-5.1); Total Protein 7.1 g/dL (6.4-8.2)
[2018-04-02] MEDS ORDERED: Sod Chloride 0.9% Inj 1,000 ML IV.SIG SCH (15:45)
[2018-04-02] MEDS ORDERED: Bisacodyl 10 MG Supp RECTAL PRN (16:11)
[2018-04-02] MEDS ORDERED: Acetaminophen 325 MG Tablet PO PRN ×2 (16:11→20:00)
[2018-04-02] MEDS: Heparin - SQ 10,000 UNITS/ML Vial SQ SCH (17:18)
--- NOTE | 2018-04-02 18:13 | P.HPIM ---
History of Present Illness Primary Care Physician: UNKNOWN Chief Complaint: My doctor told me to come in. History of Present Illness: 68-year-old white male with a history of hypertension, chronic kidney disease stage III, diabetes mellitus type 2, COPD was sent to the emergency room by his primary care physician secondary to having abnormal lab work. He also reported that he had a upcoming appointment with Dr. Toro today who also referred him to the emergency room. Apparently , patient reports that he is had increase swelling of his bilateral lower extremities during the past 2-3 weeks. His primary care physician had instructed him to double or even triple his dosage of furosemide. He states despite the increase in dosing, he has not had increase urine output and apparently now has decreased output. He reports having chronic lower back pain particularly when he gets up and starts ambulating during the past few months. He reports due to the swelling and back pain he has had difficulty with his gait balance and uses a cane for ambulation. He also noticed some redness associated with his bilateral lower leg swelling in the past few days. He has not had any associated chills or fevers. Due to his back pain, he has been taking meloxicam and some [id number] NSAIDs. In addition, patient has had some on and off intermittent epigastric discomfort which is relieved at times with Pepto-Bismol. He has also seen dark stools over the past few weeks. He also noted he drinks at least 6-8 alcoholic beverages on a daily basis. He reports no active shortness of breath or chest pain at this time. He does not recall his last creatinine and reports he has been told that he has chronic kidney disease stage III and has seen a bottler who has done an ultrasound in the past that showed "cyst". Inpatient Certification Inpatient Certification: I certify that the inpatient services were ordered in accordance with Medicare regulations governing the order. This includes certification that hospital inpatient services are reasonable and necessary and in the case of services not specified as inpatient-only under 42 CFR 419.22(n), that they are appropriately provided as inpatient services in accordance to with the 2-midnight benchmark under 43 CFR 412.3(e) Estimated Total Length of Stay (Days): 3 Plans for Post Hospital Care: Home Review of Systems Constitutional: Reports as per HPI, Reports fatigue, Denies headache(s) and Reports weakness Eyes: Denies blurry vision, Denies change in vision and Denies eye pain Ears, Nose, Mouth, and Throat: Denies abnormal hearing, Denies headache(s), Denies mouth pain, Denies nasal congestion, Denies neck pain and Denies sore throat Cardiovascular: Denies chest pain, Reports pedal edema, Reports edema, Reports leg edema, Denies palpitations, Denies dyspnea, Denies orthopnea and Denies paroxysmal nocturnal dyspnea Respiratory: Reports cough and Denies dyspnea Gastrointestinal: Reports abdominal pain, Reports melena, Denies hematochezia, Denies constipation, Denies loose stools, Denies nausea and Denies vomiting Musculoskeletal: Reports back pain, Denies myalgias, Reports arthralgias, Denies neck pain and Denies numbness Skin/Breast: Denies new lesions and Denies rash Neurologic: Denies abnormal hearing, Reports abnormal gait, Denies headache(s), Denies focal weakness, Denies memory loss and Denies numbness Psychiatric: Denies anxiety, Denies depression and Denies memory loss Endocrine: Denies cold intolerance, Denies heat intolerance and Denies palpitations Hematologic/Lymphatic: Denies easy bleeding and Denies easy bruising [facility] Medical History Medical History CKD stage 3 secondary to diabetes (Chronic) COPD (chronic obstructive pulmonary disease) (Chronic) Diabetes mellitus (Chronic) Gout (Chronic) History of BPH (Chronic) Hypertension (Chronic) Prostate CA (Chronic) RBBB (Chronic) Surgical History Surgical History History of shoulder surgery (Acute) History of left knee replacement (Chronic) History of right knee joint replacement (Chronic) Family History Family History Father Heart disease Social History Social History Substance History: No History of Abuse Second Hand Smoke Exposure: No Smoking Status: Former smoker How Often Do You Have a Drink Containing Alcohol: 4 or more times a week Recent Travel in [facility] within the Last 8 Weeks: No Recent Out of Country Travel within the Last 8 Weeks: No Immunization History Tetanus Immunization: Unsure Medications and Allergies Allergies Allergy/AdvReac Type Severity Reaction Status Date / Time No Known Allergies Allergy Verified 04/02/18 14:05 Home Medications Medication Instructions Recorded Confirmed Type acetaminophen 325 mg PO Q4-6H PRN 04/02/18 04/02/18 History allopurinol 150 mg PO BID 04/02/18 04/02/18 History calcium carbonate-vitamin D3 1 tab PO BID 04/02/18 04/02/18 History [Calcium 500 + D (D3)] cholecalciferol (vitamin D3) 2,000 unit PO DAILY 04/02/18 04/02/18 History furosemide [Lasix] 20 mg PO BID 04/02/18 04/02/18 History guaifenesin 600 mg PO Q12H 04/02/18 04/02/18 History ipratropium-albuterol [Combivent 1 puff INHALATION QID 04/02/18 04/02/18 History Respimat] lisinopril 40 mg PO BID 04/02/18 04/02/18 History meloxicam 15 mg PO DAILY 04/02/18 04/02/18 History mirabegron [Myrbetriq] 50 mg PO DAILY 04/02/18 04/02/18 History omega-3 fatty acids-fish oil [Fish 1 cap PO HS 04/02/18 04/02/18 History Oil] tamsulosin 0.4 mg PO BID 04/02/18 04/02/18 History Active Medications: Active Medications Acetaminophen (Tylenol) 650 mg PO Q4H PRN PRN Reason: Temp > 100.4 Al Hydroxide/Mg Hydroxide (Milk Of Magnesia Liq) 30 ml PO Q12H PRN PRN Reason: Mild Constipation Bisacodyl (Dulcolax Supp) 10 mg RECTAL DAILY PRN PRN Reason: SEVERE CONSITIPATION Heparin Sodium (Porcine) (Heparin Inj) 5,000 units SQ Q12H [facility] Last Admin: 04/02/18 17:18 Dose: 5,000 units Sodium Chloride (Ns Inj) 1,000 mls @ 100 mls/hr IV.CONT .Q10H [facility] Lactulose (Lactulose Liq) 30 ml PO DAILY PRN PRN Reason: SEVERE CONSITIPATION Ondansetron HCl (Zofran Inj) 4 mg IV.PUSH Q6H PRN PRN Reason: NAUSEA OR VOMITING Senna/Docusate Sodium (Trudy-Colace) 1 tab PO BID [facility] Sennosides (Senokot) 17.2 mg PO Q12H PRN PRN Reason: Moderate Constipation Sodium Chloride (Ns Flush) 2 ml IV.FLUSH BID [facility] Sodium Chloride (Ns Flush) 2 ml IV.FLUSH PRN PRN PRN Reason: FLUSH AFTER USING IV ACCESS Physical Exam Vital signs: Last Vital Signs Temp 97.8 F 04/02/18 13:50 Pulse 98 H 04/02/18 16:00 Resp 20 04/02/18 16:00 BP 154/65 H 04/02/18 16:00 Pulse Ox 98 04/02/18 16:00 Intake & Output 03/31/18 04/01/18 04/02/18 04/03/18 06:59 06:59 06:59 06:59 Output Total 400 / 400 Balance -400 / -400 Weight 118.841 kg Narrative: GENERAL: Obese well-nourished well-developed white male in no acute distress SKIN: Warm and dry. Redness surrounding bilateral lower leg and ankle areas, HEAD: Atraumatic. Normocephalic. EYES: Pupils equal and round. No scleral icterus. No injection or drainage. ENT: No nasal bleeding or discharge. Mucous membranes pink and moist. NECK: Trachea midline. No JVD. CARDIOVASCULAR: Regular rate and rhythm. RESPIRATORY: No accessory muscle use. Clear to auscultation. Breath sounds equal bilaterally. GASTROINTESTINAL: Abdomen soft, non-tender, nondistended. Hepatic and splenic margins not palpable. Obese, normoactive bowel sounds MUSCULOSKELETAL: Extremities without clubbing, cyanosis, patient with 2+ pitting edema with surrounding redness around the ankle and distal extremities NEUROLOGICAL: Awake and alert to person place time situation. No obvious cranial nerve deficits. Motor grossly within normal limits. Five out of 5 muscle strength in the arms and legs. Normal speech. PSYCHIATRIC: Appropriate mood and affect; insight and judgment normal. Results Labs CBC & Chem 7: 04/02/18 14:30 04/02/18 14:30 ECG Attestation: I personally reviewed and interpreted this ECG as follows: Prior ECG tracings: not available for review Interpretation: EKG with sinus rhythm with second-degree AV block right bundle branch block Caprini VTE Risk Assessment Caprini VTE Risk Assessment: Moderate/High Risk (score >= 2) Caprini Risk Assessment Model: Point Value = 1 Point Value = 2 Point Value = 3 Point Value = 5 Age 41-60 Minor surgery BMI > 25 kg/m2 Swollen legs Varicose veins or History of unexplained or recurrent spontaneous Oral contraceptives or hormone replacement Sepsis (< 1 month) Serious lung disease, including pneumonia (< 1 month) Abnormal pulmonary function Acute myocardial infarction Congestive heart failure (< 1 month) History of inflammatory bowel disease Medical patient at bed rest Age 61-74 Arthroscopic surgery Major open surgery (> 45 min) Laparoscopic surgery (> 45 min) Malignancy Confined to bed (> 72 hours) Immobilizing plaster cast Central venous access Age >= 75 History of VTE Family history of VTE Factor V Leiden Prothrombin [id number] Lupus anticoagulant Anticardiolipin antibodies Elevated serum homocysteine Heparin-induced thrombocytopenia Other congenital or acquired thrombophilia Stroke (< 1 month) Elective arthroplasty Hip, pelvis, or leg fracture Acute spinal cord injury (< 1 month) Prophylaxis Regimen: Total Risk Factor Score Risk Level Prophylaxis Regimen 0-1 Low Early ambulation 2 Moderate Order ONE of the following: *Sequential Compression Device (SCD) *Heparin 5000 units SQ BID 3-4 Higher Order ONE of the following medications: *Heparin 5000 units SQ TID *Enoxaparin/Lovenox 40 mg SQ daily (WT < 150 kg, CrCl > 30 mL/min) *Enoxaparin/Lovenox 30 mg SQ daily (WT < 150 kg, CrCl > 10-29 mL/min) *Enoxaparin/Lovenox 30 mg SQ BID (WT < 150 kg, CrCl > 30 mL/min) AND/OR *Sequential Compression Device (SCD) 5 or more Highest Order ONE of the following medications: *Heparin 5000 units SQ TID (Preferred with Epidurals) *Enoxaparin/Lovenox 40 mg SQ daily (WT < 150 kg, CrCl > 30 mL/min) *Enoxaparin/Lovenox 30 mg SQ daily (WT < 150 kg, CrCl > 10-29 mL/min) *Enoxaparin/Lovenox 30 mg SQ BID (WT < 150 kg, CrCl > 30 mL/min) AND *Sequential Compression Device (SCD) Assessment and Plan Plan 68-year-old white male with a history of chronic kidney disease stage II/III, diabetes mellitus type 2, hypertension, COPD who has had increase swelling of his lower extremities and has had decreased urine output despite increasing Lasix dose and frequency. 1. Acute renal failure superimposed on chronic kidney disease stage III June 2017 records show that patient had a creatinine of 1.2 with EGFR of [address] Toro[address] will obtain a renal ultrasound, consult Nephrology for further recommendations. IV fluid hydration, currently patient is not in any type of acute CHF, counseled to stop his home NSAIDs and also to avoid taking NSAIDs [id number]., Hold home lisinopril. 2. Acute hypercalcemia -IV fluid hydration to be given. Stop home calcium. Hold off on diuretics at this point. Check PTH, SPEP, and TSH for further workup. 3. Diabetes mellitus type IIpatient states is diet controlled, will continue ADA diet; glucose monitor with sliding scale insulin 4. Hypertension, chronic essentialhold lisinopril. Will start Procardia. 5. Macrocytic anemia - hx of daily etoh use, check B12, folate. occult blood screen. 6. DVT prophylaxisheparin. Consult physical therapy to evaluate gait and balance.
--- NOTE | 2018-04-02 19:04 | XR ---
EXAM DATE: 04/02/2018 6:43 PM EST AGE/SEX: 68 years / Male INDICATIONS: Cough and shortness of breath. CLINICAL DATA: This is the patient's initial encounter. Patient reports that signs and symptoms have been present for 3 days and indicates a pain score of 0/10. MEDICAL/SURGICAL HISTORY: None. None. COMPARISON: [facility], XR CHEST PA AND LAT, 04/17/2017. . FINDINGS: A single AP view of the chest demonstrates the lungs to be symmetrically aerated without evidence of mass, infiltrate or effusion. The cardiomediastinal contours are unremarkable. Osseous structures a re intact. CONCLUSION: No acute intrathoracic disease. Stable examination. Electronically signed by: Osiel Montero MD 04/02/2018 7:03 PM EST
--- NOTE | 2018-04-02 20:02 | US ---
EXAM DATE: 04/02/2018 7:56 PM EST AGE/SEX: 68 years / Male INDICATIONS: Increased BUN/Creat nine. CLINICAL DATA: This is the patient's initial encounter. Patient reports that signs and symptoms have been present for 1 day and indicates a pain score of 0/10. MEDICAL/SURGICAL HISTORY: Chronic obstructive pulmonary disease. Hypertension. Diabetes. GOUT. BPH. Prostate cancer. . Left knee replacement. Right knee replacement. Left shoulder surgery. COMPARISON: [facility], US KIDNEY, BILATERAL, 10/21/2017. . MEASUREMENTS: Right Kidney:__12.9 x 5.5 x 6.7 cm Left Kidney:__12.3 x 4.9 x 5.9 cm FINDINGS: Right Kidney: Normal in size, shape and position. No hydronephrosis. There is a cyst along the mid to upper pole measuring 2.8 cm. No significant change compared to the prior study. Left Kidney: Normal in size, shape and position. No hydronephrosis. There is a cyst along the lower p ole measuring 2.7 cm. No significant change compared to the prior study. Bladder: Decompressed. Not well evaluated. Other: None. CONCLUSION: 1. No evidence of hydronephrosis. 2. Bilateral benign-appearing renal cysts. 3. No new or significant changes compared to the prior exam. Electronically signed by: Osiel Montero MD 04/02/2018 8:01 PM EST
[2018-04-02] MEDS ORDERED: Non-Formulary Drug (Ipratropium-Albuterol [Combivent Respimat] 1 PUFF) INHALATION SCH (21:00)
[2018-04-02] MEDS ORDERED: Tiotropium Bromide 18 MCG/ACT Inhaler INH SCH (21:00)
[2018-04-02] MEDS ORDERED: Dextrose 50% in Water 50 ML Vial IV.PUSH PRN (23:09)
[2018-04-03] MEDS ORDERED: LORazepam 1 MG Tablet PO PRN (04:23)
[2018-04-03] MEDS ORDERED: Haloperidol Inj 5 MG/ML Ampul IV.PUSH PRN (04:23)
[2018-04-03 06:25] LABS: Baso % (Auto) 0.7 % (0.0-2.0); Eos # (Auto) 0.2 th/mm3 (0.0-0.4); Eos % (Auto) 3.8 % (0.0-4.0); Hematocrit 29.8 % (39.0-51.0); Hemoglobin 10.4 gm/dL (13.0-17.0); Lymph % (Auto) 19.6 % (9.0-44.0); Mean Corpuscular Hemoglobin 37.4 pg (27.0-34.0); Mean Corpuscular Volume 106.8 fL (80.0-100.0); Mean Platelet Volume 7.3 fL (7.0-11.0); Mono # (Auto) 0.7 th/mm3 (0.0-0.9); Mono % (Auto) 14.5 % (0.0-8.0); Neut % (Auto) 61.4 % (16.0-70.0); Platelet Count 154 th/mm3 (150-450); Red Blood Count 2.79 mil/mm3 (4.50-5.90); Red Cell Distribution Width 14.5 % (11.6-17.2); White Blood Count 4.9 th/mm3 (4.0-11.0)
[2018-04-03 07:05] LABS: Calcium 11.4 mg/dL (8.5-10.1); Carbon Dioxide 31.7 meq/L (21.0-32.0)
[2018-04-03 07:20] LABS: Folate 17.3 ng/mL (3.1-17.5); Thyroid Stimulating Hormone 2.7 uIU/mL (0.358-3.740)
[2018-04-03] MEDS: Heparin - SQ 10,000 UNITS/ML Vial SQ SCH ×2 (08:05→15:19)
[2018-04-03] MEDS: Sod Chloride 0.9% Inj 1,000 ML IV.CONT SCH ×4 (08:30→21:31)
[2018-04-03] MEDS: Senna/Docusate Sodium 8.6/50 MG Tablet PO SCH ×3 (08:31→21:30)
[2018-04-03] MEDS: Insulin NovoLOG Aspart Correctional Sugar Inj SQ SCH ×4 (09:32→21:39)
[2018-04-03] MEDS: Folic Acid 1 MG Tablet PO SCH (09:34)
[2018-04-03] MEDS: Pantoprazole Sodium 20 MG DR Tablet PO SCH (09:35)
[2018-04-03] MEDS: Famotidine 20 MG Tablet PO SCH ×2 (09:35→21:30)
[2018-04-03] MEDS: Tiotropium Bromide 18 MCG/ACT Inhaler INH SCH (09:38)
--- NOTE | 2018-04-03 12:46 | ECG ---
Date Performed: 04/02/2018 Time Performed: 14:12:12 PTAGE: 68 years EKG: Sinus rhythm WITH 2ND DEGREE AV BLOCK, MOBITZ TYPE II RIGHT BUNDLE BRANCH BLOCK LEFT ANTERIOR FASCICULAR BLOCK AB NORMAL ECG Since the PREVIOUS TRACING , no significant change noted PREVIOUS TRACIN04/29/2017 07.27 DOCTOR: Kwaku Olson Interpretating Date/Time 04/03/2018 12:45:09
--- NOTE | 2018-04-03 13:47 | P.PN ---
Subjective Interval history: Follow-up visit for acute on chronic renal failure, hypercalcemia and lower extremity edema. Patient is seen and examined sitting up in bed and appears to be in no acute distress. States that bilateral leg edema has improved significantly compared to yesterday. Does endorse calf tenderness. Denies any fevers, chills, nausea, vomiting, diarrhea, cough, shortness of breath or chest pain. Patient expresses some frustration over the fact that he is seen multiple primary care physicians over the past year. He also reports that he was seen by nephrology only once but is unable to remember his exact name. Physical Exam Vital signs: Vital Signs 04/02/18 13:50 04/02/18 14:03 04/02/18 15:00 Temperature 97.8 F Pulse Rate 103 H 97 H 98 H Respiratory Rate 18 24 18 Blood Pressure 149/67 H 179/79 H 171/84 H Pulse Oximetry 100 94 L 96 04/02/18 16:00 04/02/18 18:30 04/02/18 19:58 Temperature 97.7 F Pulse Rate 98 H 95 H 107 H Respiratory Rate 20 20 18 Blood Pressure 154/65 H 155/78 H 141/73 H Pulse Oximetry 98 98 93 L 04/03/18 00:47 04/03/18 03:46 04/03/18 08:00 Temperature 98 F 97.2 F L 98.3 F Pulse Rate 97 H 97 H 93 H Respiratory Rate 16 16 18 Blood Pressure 133/64 153/70 H 166/76 H Pulse Oximetry 92 L 93 L 92 L 04/03/18 12:00 Temperature 97.6 F Pulse Rate 90 Respiratory Rate 18 Blood Pressure 146/70 H Pulse Oximetry 91 L Intake & Output 04/02/18 04/03/18 04/03/18 18:59 06:59 18:59 Intake Total 1650 / 1650 Output Total 400 / 400 425 / 425 Balance -400 / -400 1225 / 1225 Weight 118.841 kg 121.8 kg Intake: IV 1000 / 1000 Oral 650 / 650 Output: Urine 400 / 400 425 / 425 Other: # Voids 1 Date of Last Bowel Movement 04/02/18 05/02/18 # Bowel Movements 2 Weight On Admission 120.8 kg Narrative: GENERAL: Well-developed obese male sitting up in bed in no acute distress. SKIN: Warm and dry. HEAD: Atraumatic. Normocephalic. EYES: Pupils equal and round. No scleral icterus. No injection or drainage. ENT: No nasal bleeding or discharge. Mucous membranes pink and moist. NECK: Trachea midline. CARDIOVASCULAR: Regular rate and rhythm. RESPIRATORY: No accessory muscle use. Faint expiratory wheezing and posterior lobes, no crackles or rhonchi. Breath sounds equal bilaterally. GASTROINTESTINAL: Abdomen soft/obese, non-tender, nondistended. + Bowel sounds. MUSCULOSKELETAL: Extremities without clubbing, cyanosis. Bilateral leg edema +1 , foot edema +2. Bilateral calf tenderness. NEUROLOGICAL: Awake and alert and oriented x3. No obvious cranial nerve deficits. Motor grossly within normal limits. Normal speech. PSYCHIATRIC: Appropriate mood and affect; insight and judgment normal. Results - Labs CBC & Chem 7: 04/03/18 05:32 04/03/18 05:37 Laboratory Results - last 24 hr 04/02/18 04/02/18 04/02/18 14:30 14:30 14:30 WBC 7.1 RBC 3.05 L Hgb 11.6 L Hct 32.5 L MCV 106.5 H MCH 37.8 H MCHC 35.5 RDW 14.7 Plt Count 175 MPV 7.6 Neut % (Auto) 71.4 H Lymph % (Auto) 11.5 Jerome % (Auto) 14.7 H Eos % (Auto) 1.8 Baso % (Auto) 0.6 Neut # (Auto) 5.0 Lymph # (Auto) 0.8 L Jerome # (Auto) 1.0 H Eos # (Auto) 0.1 Baso # (Auto) 0.0 WBC Differential . Differential Comment Auto diff final Sodium 132 L Potassium 4.1 Chloride 91 L Carbon Dioxide 29.9 Anion Gap 11 BUN 85 H Creatinine 3.50 H Estimated GFR 18 L POC Glucose Random Glucose 111 H Calcium 12.4 H* Calcium Adj for Albumin 12.5 H* Total Bilirubin 0.7 AST 48 H ALT 51 Alkaline Phosphatase 61 B-Natriuretic Peptide 24 Total Protein 7.1 Total Protein (PEP) Albumin 3.7 Vitamin B12 Folate TSH PTH Intact 04/02/18 04/03/18 04/03/18 23:32 05:32 05:37 WBC 4.9 RBC 2.79 L Hgb 10.4 L Hct 29.8 L MCV 106.8 H MCH 37.4 H MCHC 35.0 RDW 14.5 Plt Count 154 MPV 7.3 Neut % (Auto) 61.4 Lymph % (Auto) 19.6 Jerome % (Auto) 14.5 H Eos % (Auto) 3.8 Baso % (Auto) 0.7 Neut # (Auto) 3.0 Lymph # (Auto) 1.0 Jerome # (Auto) 0.7 Eos # (Auto) 0.2 Baso # (Auto) 0.0 WBC Differential . Differential Comment Auto diff final Sodium 139 Potassium 4.0 Chloride 100 D Carbon Dioxide 31.7 Anion Gap 7 BUN 75 H Creatinine 2.75 H Estimated GFR 23 L POC Glucose 121 H Random Glucose 109 H Calcium 11.4 H D Calcium Adj for Albumin Total Bilirubin AST ALT Alkaline Phosphatase B-Natriuretic Peptide Total Protein Total Protein (PEP) Albumin Vitamin B12 Folate TSH PTH Intact 04/03/18 04/03/18 04/03/18 05:37 05:37 08:13 WBC RBC Hgb Hct MCV MCH MCHC RDW Plt Count MPV Neut % (Auto) Lymph % (Auto) Jerome % (Auto) Eos % (Auto) Baso % (Auto) Neut # (Auto) Lymph # (Auto) Jerome # (Auto) Eos # (Auto) Baso # (Auto) WBC Differential Differential Comment Sodium Potassium Chloride Carbon Dioxide Anion Gap BUN Creatinine Estimated GFR POC Glucose 110 Random Glucose Calcium Calcium Adj for Albumin Total Bilirubin AST ALT Alkaline Phosphatase B-Natriuretic Peptide Total Protein Total Protein (PEP) 5.9 L Albumin Vitamin B12 1369 H Folate 17.3 TSH 2.700 PTH Intact 12.9 04/03/18 11:24 WBC RBC Hgb Hct MCV MCH MCHC RDW Plt Count MPV Neut % (Auto) Lymph % (Auto) Jerome % (Auto) Eos % (Auto) Baso % (Auto) Neut # (Auto) Lymph # (Auto) Jerome # (Auto) Eos # (Auto) Baso # (Auto) WBC Differential Differential Comment Sodium Potassium Chloride Carbon Dioxide Anion Gap BUN Creatinine Estimated GFR POC Glucose 176 H Random Glucose Calcium Calcium Adj for Albumin Total Bilirubin AST ALT Alkaline Phosphatase B-Natriuretic Peptide Total Protein Total Protein (PEP) Albumin Vitamin B12 Folate TSH PTH Intact - Imaging Impressions Abdomen/Bladder Ultrasound 04/02/18 00:00 CONCLUSION: 1. No evidence of hydronephrosis. 2. Bilateral benign-appearing renal cysts. 3. No new or significant changes compared to the prior exam. Chest X-Ray 04/02/18 00:00 CONCLUSION: No acute intrathoracic disease. Stable examination. Assessment and Plan - Plan 68-year-old male with past medical history significant for CKD stage II/III, DM type II, HTN, COPD and arthritis who presented to the emergency department with progressive swelling of bilateral lower extremities as well as decreased urinary output despite increasing Lasix dose. Acute on chronic renal failure June 2017 records show baseline creatinine 1.2 with GFR of 63 Creatinine at admission 3.5 -Renal ultrasound with no hydronephrosis, bilateral benign appearing renal cyst , no significant change compared to prior study. -Nephrology consulted, appreciate assistance. Patient not known to Dr. Alcaraz, call center adjusted consulted to oncall [employer] special agent -Continue IV fluids, renal function with slight improvement, creatinine 2.57 Hypercalcemia, acute -Discontinue calcium supplementation, hold diuretics -PTH, TSH within normal limits -Calcium level improving, continue to monitor Diabetes mellitus type 2 -ADA diet, Accu-Cheks with insulin sliding scale Hypertension, chronic -BP elevated today, increase Procardia to 60 mg, as needed clonidine -Hold lisinopril due to ARF Microcytic anemia, likely secondary to EtOH -Occult blood pending -B12 and folate stable DVT prophylaxissubcu heparin Discussed Condition With: Patient and RN
--- NOTE | 2018-04-03 23:34 | US ---
EXAM DATE: 04/03/2018 11:28 PM EST AGE/SEX: 68 years / Male INDICATIONS: Bilateral leg swelling. CLINICAL DATA: This is the patient's subsequent encounter. Patient reports that signs and symptoms h ave been present for 1 day and indicates a pain score of 0/10. MEDICAL/SURGICAL HISTORY: Chronic obstructive pulmonary disease. Hypertension. Diabetes. CKD . BPH. Prostate cancer. . Bilateral knee replacement. Shoulder surgery. COMPARISON: No prior exams available for comparison. TECHNIQUE: Venous ultrasound of both lower extremities was performed from the inguinal ligament to t he proximal calf. Real-time, color Doppler and spectral tracing, compression and augmentation techni ques were used. FINDINGS: Right Leg: Normal compression of the deep venous system from the inguinal region to the proximal maday f. No echogenic clot is seen. Normal response of the venous system to augmentation and respiration. Left Leg: Normal compression of the deep venous system from the inguinal region to the proximal calf . No echogenic clot is seen. Normal response of the venous system to augmentation and respiration. Other: None. CONCLUSION: No venous thrombosis is identified within either lower extremity. Electronically signed by: George Oconnor MD 04/03/2018 11:32 PM EST
[2018-04-04] MEDS: Heparin - SQ 10,000 UNITS/ML Vial SQ SCH ×2 (04:41→17:23)
[2018-04-04 08:34] LABS: Carbon Dioxide 29.3 meq/L (21.0-32.0); Potassium 3.7 meq/L (3.5-5.1)
[2018-04-04] MEDS: Famotidine 20 MG Tablet PO SCH ×2 (09:41→21:30)
[2018-04-04] MEDS: Folic Acid 1 MG Tablet PO SCH (09:41)
[2018-04-04] MEDS: Senna/Docusate Sodium 8.6/50 MG Tablet PO SCH ×2 (09:43→21:30)
[2018-04-04] MEDS: Sod Chloride 0.9% Inj 1,000 ML IV.CONT SCH ×2 (09:44→17:26)
[2018-04-04] MEDS: Insulin NovoLOG Aspart Correctional Sugar Inj SQ SCH ×4 (09:44→21:30)
[2018-04-04] MEDS: Pantoprazole Sodium 20 MG DR Tablet PO SCH (09:45)
[2018-04-04] MEDS: Tiotropium Bromide 18 MCG/ACT Inhaler INH SCH (09:45)
--- NOTE | 2018-04-04 11:17 | P.PN ---
Subjective Interval history: Follow-up visit for acute on chronic renal failure, hypercalcemia and lower extremity edema. Patient is seen and examined sitting up in bed in no acute distress. He reports intermittent scattered nonproductive cough, denies any shortness of breath, fevers, chills, nausea, vomiting or diarrhea. Patient has noticed an increase in his urinary output, leg swelling states has also almost resolved. He also is feeling much better overall and less fatigued. Physical Exam Vital signs: Vital Signs 04/03/18 12:00 04/03/18 15:00 04/03/18 15:26 Temperature 97.6 F 97.7 F Pulse Rate 90 105 H Respiratory Rate 18 16 Blood Pressure 146/70 H 189/87 H 154/70 H Pulse Oximetry 91 L 92 L 04/03/18 16:46 04/03/18 16:47 04/03/18 19:33 Temperature 98.2 F Pulse Rate 92 H 91 H 93 H Respiratory Rate 20 Blood Pressure 141/65 H Pulse Oximetry 95 04/03/18 21:30 04/04/18 00:00 04/04/18 04:00 Temperature 98.4 F 97.4 F L Pulse Rate 92 H 91 H 93 H Respiratory Rate 16 19 19 Blood Pressure 146/75 H 140/65 Pulse Oximetry 95 95 04/04/18 07:00 04/04/18 08:00 Temperature 97.9 F Pulse Rate 101 H 88 Respiratory Rate 16 17 Blood Pressure 158/81 H Pulse Oximetry 92 L Intake & Output 04/03/18 04/04/18 04/04/18 18:59 06:59 18:59 Intake Total 1779 / 1779 1161 / 1161 1000 / 1000 Output Total 500 / 500 1225 / 1225 Balance 1279 / 1279 -64 / -64 1000 / 1000 Weight 121.4 kg Intake: IV 799 / 799 201 / 201 1000 / 1000 NS Inj 1,000 ML @ 100 mls/hr IV 799 / 799 201 / 201 1000 / 1000 .CONT .Q10H GABBY Rx#:[id number] Oral 980 / 980 960 / 960 Output: Urine 500 / 500 1225 / 1225 Other: # Voids 2 2 # Incontinent Voids 1 # Urine Diapers 2 Date of Last Bowel Movement 05/02/18 05/02/18 05/02/18 Narrative: GENERAL: Well-developed obese male sitting up in bed in no acute distress. SKIN: Warm and dry. HEAD: Atraumatic. Normocephalic. EYES: Pupils equal and round. No scleral icterus. No injection or drainage. ENT: No nasal bleeding or discharge. Mucous membranes pink and moist. NECK: Trachea midline. CARDIOVASCULAR: Regular rate and rhythm. RESPIRATORY: No accessory muscle use. Faint RLL wheezing, improved, no crackles or rhonchi. Breath sounds equal bilaterally. GASTROINTESTINAL: Abdomen soft/obese, non-tender, nondistended. + Bowel sounds. MUSCULOSKELETAL: Extremities without clubbing, cyanosis. Bilateral leg edema trace edema, bilateral foot edema +1. Bilateral calf tenderness, improved. NEUROLOGICAL: Awake and alert and oriented x3. No obvious cranial nerve deficits. Motor grossly within normal limits. Normal speech. PSYCHIATRIC: Appropriate mood and affect; insight and judgment normal. Results - Labs CBC & Chem 7: 04/03/18 05:32 04/04/18 06:49 Laboratory Results - last 24 hr 04/03/18 04/03/18 04/03/18 11:24 16:28 21:37 Sodium Potassium Chloride Carbon Dioxide Anion Gap BUN Creatinine Estimated GFR POC Glucose 176 H 135 H 118 H Random Glucose Calcium 04/04/18 06:49 Sodium 142 Potassium 3.7 Chloride 106 Carbon Dioxide 29.3 Anion Gap 7 BUN 47 H Creatinine 2.30 H Estimated GFR 29 L POC Glucose Random Glucose 112 H Calcium 10.0 D - Imaging Impressions Venous Doppler Study 04/03/18 00:00 CONCLUSION: No venous thrombosis is identified within either lower extremity. Assessment and Plan - Plan 68-year-old male with past medical history significant for CKD stage II/III, DM type II, HTN, COPD and arthritis who presented to the emergency department with progressive swelling of bilateral lower extremities as well as decreased urinary output despite increasing Lasix dose. Acute on chronic renal failure June 2017 records show baseline creatinine 1.2 with GFR of 63 Creatinine at admission 3.5 -Renal ultrasound with no hydronephrosis, bilateral benign appearing renal cyst , no significant change compared to prior study. -Nephrology consulted, appreciate assistance. May DC per nephrology, but pending BMP in a.m, will need to follow-up as outpatient. -Continue IV fluids, renal function continues to improve, creatinine 2.3 Hypercalcemia, resolved -Discontinue calcium supplementation, hold diuretics -PTH, TSH within normal limits -Calcium level back to normal, feeling less fatigued Diabetes mellitus type 2 -ADA diet, Accu-Cheks with insulin sliding scale -BS stable Hypertension, chronic -Procardia to 60 mg, as needed clonidine -Hold lisinopril due to ARF Microcytic anemia, likely secondary to EtOH -Occult blood pending -B12 and folate stable DVT prophylaxissubcu heparin Discussed Condition With: Patient, RN, nephrology [employer]ATOR Discharge Planning: DC tomorrow as long as creatinine is improved. Follow up with nephrology as outpatient.
--- NOTE | 2018-04-04 12:37 | P.CONNP ---
<Ramona Lopez - Last Filed: 04/04/18 12:23> History of Present Illness Service: Nephrology Consult date: 04/04/18 Reason for Consult: Acute kidney injury on chronic kidney disease. Primary Care Provider: UNKNOWN Chief Complaint: My doctor told me to come in. History of Present Illness: Patient is a 68-year-old white male with a history of hypertension for 5-6 years , gout, BPH, chronic kidney disease stage III, borderline diabetes, and COPD. Was sent to the emergency room by his primary care physician secondary to having abnormal lab work. He also reported that he had a upcoming appointment with Dr. Toro today who also referred him to the emergency room. Apparently , patient reports that he is had increase swelling of his bilateral lower extremities during the past 2-3 weeks. His primary care physician had instructed him to double or even triple his dosage of furosemide. He states despite the increase in dosing, he has not had increase urine output and apparently now has decreased output. He reports having chronic lower back pain particularly when he gets up and starts ambulating during the past few months. He reports due to the swelling and back pain. Due to his back pain, he has been taking meloxicam and some [id number] NSAIDs. Nephrology is consulted for acute kidney injury with a creatinine on admission at 3.5 which has now improved to 2.30. He was [facility] 3 years [facility] that he has CKD stage 3. He has been seen by a sterile supply technician in the past but can not recall name. He denies any shortness of breath, chest pain, nausea, or vomiting. Continues to have increased weakness. [facility] - History History Provided By: Patient - Medical History Medical History: Medical History (Last Reviewed 04/03/18 @ 07:21 by Karen Field) CKD stage 3 secondary to diabetes COPD (chronic obstructive pulmonary disease) Diabetes mellitus Gout History of BPH Hypertension Prostate CA RBBB - Surgical History Surgical History: Surgical History (Last Reviewed 04/03/18 @ 07:21 by Karen Field) History of shoulder surgery History of left knee replacement History of right knee joint replacement - Family History Family History: Family History Father Heart disease - Tobacco History Second Hand Smoke Exposure: No Smoking Status: Former smoker - Alcohol History How Often Do You Have a Drink Containing Alcohol: 4 or more times a week - Substance Use History Substance History: No History of Abuse - Travel History Recent Travel in the [place] Within the Last 8 Weeks: No Recent Travel Out of the Country Within the Last 8 Weeks: No - Immunization History Tetanus Immunization: Unsure Hx Influenza Vaccine This Season: Yes Medications and Allergies Allergies Allergy/AdvReac Type Severity Reaction Status Date / Time No Known Allergies Allergy Verified 04/02/18 14:05 Home Medications Medication Instructions Recorded Confirmed Type acetaminophen 325 mg PO Q4-6H PRN 04/02/18 04/02/18 History allopurinol 150 mg PO BID 04/02/18 04/02/18 History cholecalciferol (vitamin D3) 2,000 unit PO DAILY 04/02/18 04/02/18 History furosemide [Lasix] 20 mg PO BID 04/02/18 04/02/18 History guaifenesin 600 mg PO Q12H 04/02/18 04/02/18 History ipratropium-albuterol [Combivent 1 puff INHALATION QID 04/02/18 04/02/18 History Respimat] mirabegron [Myrbetriq] 50 mg PO DAILY 04/02/18 04/02/18 History omega-3 fatty acids-fish oil [Fish 1 cap PO HS 04/02/18 04/02/18 History Oil] tamsulosin 0.4 mg PO BID 04/02/18 04/02/18 History Active Medications: Active Medications Acetaminophen (Tylenol) 650 mg PO Q4H PRN PRN Reason: Temp > 100.4 Acetaminophen (Tylenol) 325 mg PO Q4H PRN PRN Reason: Pain 1-10 Al Hydroxide/Mg Hydroxide (Milk Of Amena Lige[place]) 30 ml PO Q12H PRN PRN Reason: Mild Constipation Albuterol (Ventolin Hfa Inh) 2 puff INH QID WHIT Last Admin: 04/04/18 09:45 Dose: 2 puff Albuterol (Albuterol Neb (Whit)) 1.25 mg NEB Q6HR WHILE AWAKE NEB WHIT Last Admin: 04/04/18 08:56 Dose: 1.25 mg Bisacodyl (Dulcolax Supp) 10 mg RECTAL DAILY PRN PRN Reason: SEVERE CONSITIPATION Clonidine HCl (Catapres) 0.1 mg PO Q6H PRN PRN Reason: SBP>160, DBP>90 Dextrose (D50w Vial) 50 ml IV.PUSH UNSCH PRN PRN Reason: PER HYPOGLYCEMIA PROTOCOL Famotidine (Pepcid) 10 mg PO BID [facility] Last Admin: 04/04/18 09:41 Dose: 10 mg Flumazenil (Romazecon Inj) 0.2 mg IV.PUSH Q1M PRN PRN Reason: OVERSEDATION Folic Acid (Folic Acid) 1 mg PO DAILY [facility] Stop: 04/08/18 08:59 Last Admin: 04/04/18 09:41 Dose: 1 mg Glucagon (Glucagon Inj) 1 mg OTHER PRN PRN PRN Reason: for Hypoglycemia Protocol Haloperidol Lactate (Haldol Inj) 1 mg IV.PUSH Q15M PRN PRN Reason: for severe agitation Heparin Sodium (Porcine) (Heparin Inj) 5,000 units SQ Q12H [facility] Last Admin: 04/04/18 04:41 Dose: 5,000 units Sodium Chloride (Ns Inj) 1,000 mls @ 100 mls/hr IV.CONT .Q10H [facility] Last Admin: 04/04/18 09:44 Dose: 100 mls/hr Insulin Aspart (Novolog Insulin Correctional Sugar Inj) 0 unit SQ ACHS [facility]; Protocol Last Admin: 04/04/18 09:44 Dose: Not Given Lactulose (Lactulose Liq) 30 ml PO DAILY PRN PRN Reason: SEVERE CONSITIPATION Lorazepam (Ativan) 1 mg PO Q4H PRN PRN Reason: for CIWA 8-10 Lorazepam (Ativan) 2 mg PO Q2H PRN PRN Reason: for CIWA 11-14 Lorazepam (Ativan Inj) 2 mg IV.PUSH Q2H PRN PRN Reason: for CIWA 11-14 Lorazepam (Ativan Inj) 2 mg IV.PUSH Q1H PRN PRN Reason: for CIWA 15-20 Lorazepam (Ativan Inj) 2 mg IV.PUSH Q15M PRN PRN Reason: for CIWA > 20 Lorazepam (Ativan Inj) 1 mg IV.PUSH Q4H PRN PRN Reason: for CIWA 8-10 Nifedipine (Procardia Xl) 60 mg PO DAILY [facility] Last Admin: 04/04/18 09:42 Dose: 60 mg Ondansetron HCl (Zofran Inj) 4 mg IV.PUSH Q6H PRN PRN Reason: NAUSEA OR VOMITING Pantoprazole Sodium (Protonix) 20 mg PO DAILY [facility] Last Admin: 04/04/18 09:45 Dose: 20 mg Senna/Docusate Sodium (Trudy-Colace) 1 tab PO BID [facility] Last Admin: 04/04/18 09:43 Dose: 1 tab Sennosides (Senokot) 17.2 mg PO Q12H PRN PRN Reason: Moderate Constipation Sodium Chloride (Ns Flush) 2 ml IV.FLUSH BID [facility] Last Admin: 04/04/18 09:45 Dose: Not Given Sodium Chloride (Ns Flush) 2 ml IV.FLUSH PRN PRN PRN Reason: FLUSH AFTER USING IV ACCESS Tamsulosin HCl (Flomax) 0.4 mg PO DAILY [facility] Last Admin: 04/04/18 09:41 Dose: 0.4 mg Thiamine HCl (Vitamin B1) 100 mg PO DAILY [facility] Last Admin: 04/04/18 09:43 Dose: 100 mg Tiotropium [place] (Spiriva 18 Mcg Inh) 18 mcg INH DAILY [facility] Last Admin: 04/04/18 09:45 Dose: 18 mcg Exam Vital signs: Vital Signs 04/03/18 15:00 04/03/18 15:26 04/03/18 16:46 Temperature 97.7 F Pulse Rate 105 H 92 H Respiratory Rate 16 Blood Pressure 189/87 H 154/70 H Pulse Oximetry 92 L 04/03/18 16:47 04/03/18 19:33 04/03/18 21:30 Temperature 98.2 F Pulse Rate 91 H 93 H 92 H Respiratory Rate 20 16 Blood Pressure 141/65 H Pulse Oximetry 95 04/04/18 00:00 04/04/18 04:00 04/04/18 07:00 Temperature 98.4 F 97.4 F L Pulse Rate 91 H 93 H 101 H Respiratory Rate 19 19 16 Blood Pressure 146/75 H 140/65 Pulse Oximetry 95 95 04/04/18 08:00 04/04/18 11:25 04/04/18 12:00 Temperature 97.9 F 97.8 F Pulse Rate 89 87 88 Respiratory Rate 17 18 Blood Pressure 158/81 H 154/88 H Pulse Oximetry 92 L 92 L Intake & Output 04/03/18 04/04/18 04/04/18 18:59 06:59 18:59 Intake Total 1779 / 1779 1161 / 1161 1000 / 1000 Output Total 500 / 500 1225 / 1225 Balance 1279 / 1279 -64 / -64 1000 / 1000 Weight 121.4 kg Intake: IV 799 / 799 201 / 201 1000 / 1000 NS Inj 1,000 ML @ 100 mls/hr IV 799 / 799 201 / 201 1000 / 1000 .CONT .Q10H [facility]IT Rx#:[id number] Oral 980 / 980 960 / 960 Output: Urine 500 / 500 1225 / 1225 Other: # Voids 2 2 # Incontinent Voids 1 # Urine Diapers 2 Date of Last Bowel Movement 05/02/18 05/02/18 05/02/18 Narrative: GENERAL: Well-developed obese male sitting up in bed in no acute distress. SKIN: Warm and dry. NECK: Trachea midline. No JVD. CARDIOVASCULAR: Regular rate and rhythm. RESPIRATORY: No accessory muscle use. Breath sounds diminished and equal bilaterally. GASTROINTESTINAL: Abdomen soft/obese, non-tender, nondistended. + Bowel sounds. MUSCULOSKELETAL: Extremities without clubbing, cyanosis. Bilateral leg edema +1 , foot edema +2. NEUROLOGICAL: Awake and alert and oriented x3. Results - Lab Results 04/03/18 05:32 04/04/18 06:49 Most recent lab results Calcium 10.0 mg/dL (8.5-10.1) D 04/04/18 06:49 - Image Kidney/bladder ultrasound: report reviewed Assessment and Plan - Assessment (1) Acute kidney injury superimposed on chronic kidney disease Code(s): N17.9 - Acute kidney failure, unspecified; N18.9 - Chronic kidney disease, unspecified Status: Acute Plan: Acute kidney injury most likely prerenal with diuretic use. Has chronic kidney disease and baseline creatinine is not available Renal ultrasound with no acute findings. Creatinine has improved 3.5 ->2.75 -> 2.30 today Urine output amount not documented but per patient improved. Instructed to avoid nephrotoxins including NSAIDS Continue IVF for now, tolerating well, oral fluids encouraged UA ordered From nephrology stand point patient can be discharged but will need follow up outpatient. BMP in AM (2) Borderline diabetes mellitus Code(s): R73.03 - Prediabetes Status: Acute Plan: Diet controlled. Maintain BS between 140 mg/dl to 180 mg/dl (3) History of BPH Code(s): Z87.438 - Personal history of other diseases of male genital organs Status: Acute Plan: continue flomax (4) Hypertension Code(s): I10 - Essential (primary) hypertension Status: Acute Plan: Will monitor on procardia, has been increased. Low sodium diet. (5) Hypercalcemia Code(s): E83.52 - Hypercalcemia Status: Acute Plan: Has improved most likely related to volume depletion and replacement. <Winifred Villanueva - Last Filed: 04/06/18 20:32> History of Present Illness Primary Care Provider: UNKNOWN [facility] - Medical History Medical History: Medical History (Last Reviewed 04/03/18 @ 07:21 by Karen Field) CKD stage 3 secondary to diabetes COPD (chronic obstructive pulmonary disease) Diabetes mellitus Gout History of BPH Hypertension Prostate CA RBBB - Surgical History Surgical History: Surgical History (Last Reviewed 04/03/18 @ 07:21 by Karen Field) History of shoulder surgery History of left knee replacement History of right knee joint replacement - Family History Family History: Family History Father Heart disease Medications and Allergies Active Medications: Active Medications Acetaminophen (Tylenol) 650 mg PO Q4H PRN PRN Reason: Temp > 100.4 Acetaminophen (Tylenol) 325 mg PO Q4H PRN PRN Reason: Pain 1-10 Al Hydroxide/Mg Hydroxide (Milk Of [place] Liq) 30 ml PO Q12H PRN PRN Reason: Mild Constipation Albuterol (Ventolin Hfa Inh) 2 puff INH QID [facility] Last Admin: 04/05/18 09:00 Dose: 2 puff Albuterol (Albuterol Neb (Whit)) 1.25 mg NEB Q6HR WHILE AWAKE NEB [facility] Last Admin: 04/05/18 08:57 Dose: 1.25 mg Bisacodyl (Dulcolax Supp) 10 mg RECTAL DAILY PRN PRN Reason: SEVERE CONSITIPATION Clonidine HCl (Catapres) 0.1 mg PO Q6H PRN PRN Reason: SBP>160, DBP>90 Last Admin: 04/05/18 00:33 Dose: 0.1 mg Dextrose (D50w Vial) 50 ml IV.PUSH UNSCH PRN PRN Reason: PER HYPOGLYCEMIA PROTOCOL Famotidine (Pepcid) 10 mg PO BID [facility] Last Admin: 04/05/18 08:14 Dose: 10 mg Flumazenil (Romazecon Inj) 0.2 mg IV.PUSH Q1M PRN PRN Reason: OVERSEDATION Folic Acid (Folic Acid) 1 mg PO DAILY [facility] Stop: 04/08/18 08:59 Last Admin: 04/05/18 08:14 Dose: 1 mg Glucagon (Glucagon Inj) 1 mg OTHER PRN PRN PRN Reason: for Hypoglycemia Protocol Haloperidol Lactate (Haldol Inj) 1 mg IV.PUSH Q15M PRN PRN Reason: for severe agitation Heparin Sodium (Porcine) (Heparin Inj) 5,000 units SQ Q12H [facility] Last Admin: 04/05/18 04:56 Dose: 5,000 units Sodium Chloride (Ns Inj) 1,000 mls @ 100 mls/hr IV.CONT .Q10H [facility] Last Admin: 04/05/18 04:50 Dose: 100 mls/hr Insulin Aspart (Novolog Insulin Correctional Sugar Inj) 0 unit SQ ACHS [facility]; Protocol Last Admin: 04/05/18 12:00 Dose: Not Given Lactulose (Lactulose Liq) 30 ml PO DAILY PRN PRN Reason: SEVERE CONSITIPATION Lorazepam (Ativan) 1 mg PO Q4H PRN PRN Reason: for CIWA 8-10 Lorazepam (Ativan) 2 mg PO Q2H PRN PRN Reason: for CIWA 11-14 Lorazepam (Ativan Inj) 2 mg IV.PUSH Q2H PRN PRN Reason: for CIWA 11-14 Lorazepam (Ativan Inj) 2 mg IV.PUSH Q1H PRN PRN Reason: for CIWA 15-20 Lorazepam (Ativan Inj) 2 mg IV.PUSH Q15M PRN PRN Reason: for CIWA > 20 Lorazepam (Ativan Inj) 1 mg IV.PUSH Q4H PRN PRN Reason: for CIWA 8-10 Nifedipine (Procardia Xl) 60 mg PO DAILY [facility] Last Admin: 04/05/18 08:14 Dose: 60 mg Ondansetron HCl (Zofran Inj) 4 mg IV.PUSH Q6H PRN PRN Reason: NAUSEA OR VOMITING Pantoprazole Sodium (Protonix) 20 mg PO DAILY [facility] Last Admin: 04/05/18 08:14 Dose: 20 mg Senna/Docusate Sodium (Trudy-Colace) 1 tab PO BID [facility] Last Admin: 04/05/18 08:14 Dose: 1 tab Sennosides (Senokot) 17.2 mg PO Q12H PRN PRN Reason: Moderate Constipation Sodium Chloride (Ns Flush) 2 ml IV.FLUSH BID [facility] Last Admin: 04/05/18 09:00 Dose: 2 ml Sodium Chloride (Ns Flush) 2 ml IV.FLUSH PRN PRN PRN Reason: FLUSH AFTER USING IV ACCESS Tamsulosin HCl (Flomax) 0.4 mg PO DAILY [facility] Last Admin: 04/05/18 08:14 Dose: 0.4 mg Thiamine HCl (Vitamin B1) 100 mg PO DAILY [facility] Last Admin: 04/05/18 08:14 Dose: 100 mg Tiotropium [place] (Spiriva 18 Mcg Inh) 18 mcg INH DAILY [facility] Last Admin: 04/05/18 09:00 Dose: 18 mcg Results - Lab Results 04/03/18 05:32 04/05/18 05:08 Most recent lab results Calcium 9.5 mg/dL (8.5-10.1) 04/05/18 05:08 Assessment and Plan - Assessment (1) Acute kidney injury superimposed on chronic kidney disease Code(s): N17.9 - Acute kidney failure, unspecified; N18.9 - Chronic kidney disease, unspecified Status: Acute Plan: Patient seen and examined, agree with above. Creatinine continue to improve. Possibly discharge, will need out patient HD. (2) Borderline diabetes mellitus Code(s): R73.03 - Prediabetes Status: Acute (3) History of BPH Code(s): Z87.438 - Personal history of other diseases of male genital organs Status: Acute (4) Hypertension Code(s): I10 - Essential (primary) hypertension Status: Chronic (5) Hypercalcemia Code(s): E83.52 - Hypercalcemia Status: Acute
[2018-04-04 15:44] LABS: Bilirubin,Urine Negative (Negative); Clarity,Urine Clear (Clear); Color,Urine Yellow (Yellw/Straw); Glucose,Urine (UA) 150 mg/dL (Negative); Leukocyte Esterase,Urine Negative (Negative); Nitrite,Urine Negative (Negative); Specific Gravity,Urine 1.011 (1.002-1.035)
[2018-04-05] MEDS: Sod Chloride 0.9% Inj 1,000 ML IV.CONT SCH (04:50)
[2018-04-05] MEDS: Heparin - SQ 10,000 UNITS/ML Vial SQ SCH (04:56)
[2018-04-05 06:49] LABS: Calcium 9.5 mg/dL (8.5-10.1); Carbon Dioxide 27.8 meq/L (21.0-32.0); Potassium 3.8 meq/L (3.5-5.1)
[2018-04-05] MEDS: Insulin NovoLOG Aspart Correctional Sugar Inj SQ SCH ×2 (08:00→12:00)
[2018-04-05] MEDS: Senna/Docusate Sodium 8.6/50 MG Tablet PO SCH (08:14)
[2018-04-05] MEDS: Famotidine 20 MG Tablet PO SCH (08:14)
[2018-04-05] MEDS: Folic Acid 1 MG Tablet PO SCH (08:14)
[2018-04-05] MEDS: Pantoprazole Sodium 20 MG DR Tablet PO SCH (08:14)
[2018-04-05] MEDS: Tiotropium Bromide 18 MCG/ACT Inhaler INH SCH (09:00)
[2018-04-05 09:07] VITALS: RESP 16
--- NOTE | 2018-04-05 11:58 | P.DS ---
DS: Providers Date of admission: 04/02/18 16:34 Primary care physician: UNKNOWN Consults: 04/04/18 11:43 Consult to Nephrology Routine Consulting Provider: Winifred Villanueva Does the patient have a Electrical Automation Engineer who follows them?: No Preferred Nephrology Aligner Barrel And Receiver:: Ophthalmology Technician Physician Reason for Consultation: ARF with hypercalcemia. Patient seen once by stream control officer, but dose not remember who. Please evaluate for recommendations, thank you. Notified:: Service Spoke with:: OANH Date Notified:: 04/04/18 Time Notified:: 12:14 Ordering Provider: CLAIRE Brief History from admission: 68-year-old white male with a history of hypertension, chronic kidney disease stage III, diabetes mellitus type 2, COPD was sent to the emergency room by his primary care physician secondary to having abnormal lab work. He also reported that he had a upcoming appointment with Dr. Toro today who also referred him to the emergency room. Apparently , patient reports that he is had increase swelling of his bilateral lower extremities during the past 2-3 weeks. His primary care physician had instructed him to double or even triple his dosage of furosemide. He states despite the increase in dosing, he has not had increase urine output and apparently now has decreased output. He reports having chronic lower back pain particularly when he gets up and starts ambulating during the past few months. He reports due to the swelling and back pain he has had difficulty with his gait balance and uses a cane for ambulation. He also noticed some redness associated with his bilateral lower leg swelling in the past few days. He has not had any associated chills or fevers. Due to his back pain, he has been taking meloxicam and some [id number] NSAIDs. In addition, patient has had some on and off intermittent epigastric discomfort which is relieved at times with Pepto-Bismol. He has also seen dark stools over the past few weeks. He also noted he drinks at least 6-8 alcoholic beverages on a daily basis. He reports no active shortness of breath or chest pain at this time. He does not recall his last creatinine and reports he has been told that he has chronic kidney disease stage III and has seen a stream control officer who has done an ultrasound in the past that showed "cyst". DS: Diagnosis Discharge Diagnosis (1) Acute kidney injury superimposed on chronic kidney disease: Status: Acute Diagnosis: Principal (2) Hypercalcemia: Status: Acute Diagnosis: Principal (3) Hypertension: Status: Chronic Diagnosis: Secondary (4) Microcytic anemia: Status: Acute Diagnosis: Secondary (5) Type II diabetes mellitus: Status: Chronic Diagnosis: Secondary DS: Summary Patient was seen in consultation by Nephrology for his presentation of acute kidney injury superimposed on chronic kidney disease. Patient had been experiencing bilateral lower extremity edema on an outapatient basis and he was instructed to increase the dose of his diuretic. His primary care physician monitored his lab work closely and patient was referred to the hospital by his PCP due to his worsening renal function. Nephrology noted that patients acute kidney injury was likely secondary to prerenal secondary to his diuretic use. His diuretic was held. A renal ultrasound was completed and showed no acute findings. Patient was hydrated with IV fluids and improvement in his serum creatinine level. On day of discharge patients Creatinine continued to trend downward and he was deemed stable for discharge from a Nephrology standpoint with continued outpatient follow up. Patient was noted to have hypercalcemia at time of admission. He had been taking calcium supplementation outpatient and was advised to discontinued taking this. His calcium level improved back to normal limits during his hospitalization. PTH and TSH levels were within normal limits. Patients Lisinopril was held due to his acute on chronic kidney injury and patient was started on Procardia 60 mg PO daily for blood pressure control. Patient was educated to follow up with his PCP in 2-3 post discharge and Nephrology within 1-2 weeks. He verbalized understanding and agreed to schedule all necessary follow up appointments. Patient was hemodynamically stable at time of discharge. All questions were answered at the bedside. Time Spent with Patient Total time spent providing and/or coordinating discharge services: Greater than 30 minutes Status at Discharge Functional status at discharge: independent ambulation Overall status at discharge: patient is back to baseline Quality: VTE Deep Vein Thrombosis/Pulmonary Embolism Present on Admission: No Exam Narrative Exam Narrative: GENERAL: no acute distress, well developed, well nourished SKIN: Warm and dry. HEAD: Atraumatic. Normocephalic. EYES: Pupils equal and round. No scleral icterus. No injection or drainage. ENT: No nasal bleeding or discharge. Mucous membranes pink and moist. NECK: Trachea midline. No JVD. CARDIOVASCULAR: Regular rate and rhythm. RESPIRATORY: No accessory muscle use. Clear to auscultation. Breath sounds equal bilaterally. GASTROINTESTINAL: Abdomen soft, non-tender, nondistended. Hepatic and splenic margins not palpable. MUSCULOSKELETAL: Extremities without clubbing, cyanosis, or edema. No obvious deformities. NEUROLOGICAL: Awake and alert. No obvious cranial nerve deficits. Motor grossly within normal limits. Five out of 5 muscle strength in the arms and legs. Normal speech. PSYCHIATRIC: Appropriate mood and affect; insight and judgment normal. Results Labs on day of discharge: Labs from last 24 hours 04/05/18 04/05/18 04/04/18 08:13 05:08 21:24 Sodium 141 Potassium 3.8 Chloride 108 H Carbon Dioxide 27.8 Anion Gap 5 BUN 35 H Creatinine 2.14 H Estimated GFR 31 L POC Glucose 119 H 133 H Random Glucose 104 Calcium 9.5 Urine Color Urine Clarity Urine pH Ur Specific [place] Urine Protein Urine Glucose (UA) Urine Ketones Urine Occult Blood Urine Nitrate Urine Bilirubin Urine Urobilinogen Ur Leukocyte Esterase Urine WBC Micro UA Comment Ur Microscopic Review Urine Culture Comments 04/04/18 04/04/18 16:16 15:20 Sodium Potassium Chloride Carbon Dioxide Anion Gap BUN Creatinine Estimated GFR POC Glucose 134 H Random Glucose Calcium Urine Color Yellow Urine Clarity Clear Urine pH 8.0 Ur Specific [place] 1.011 Urine Protein 30 H Urine Glucose (UA) 150 H Urine Ketones Negative Urine Occult Blood Small H Urine Nitrate Negative Urine Bilirubin Negative Urine Urobilinogen Less than 2 Ur Leukocyte Esterase Negative Urine WBC 1 Micro UA Comment Culture not ind Ur Microscopic Review Not Reportable Urine Culture Comments Culture not ind Impressions ITS Impressions Abdomen/Bladder Ultrasound 04/02/18 00:00 CONCLUSION: 1. No evidence of hydronephrosis. 2. Bilateral benign-appearing renal cysts. 3. No new or significant changes compared to the prior exam. Chest X-Ray 04/02/18 00:00 CONCLUSION: No acute intrathoracic disease. Stable examination. Venous Doppler Study 04/03/18 00:00 CONCLUSION: No venous thrombosis is identified within either lower extremity. Discharge Plan Discharge Disposition Patient Disposition: Discharge Home Discharge Condition Condition: Stable Discharge Order Discharge Orders: Discharge Order (Routine); Ordered 04/05/18 Ordered By: Cinthia Waldron Discharge Details Anticipated Discharge Date: 04/05/18 Physicians Team Primary Care Provider: UNKNOWN, Attending Provider: Hardy Abebe Other Providers: Winifred Villanueva Rxs /Orders / Referrals /Forms Prescriptions: New nifedipine 60 mg Tablet Extended Release 24hr 60 mg PO DAILY Qty: 30 RF: 0 Continue acetaminophen 325 mg Tablet 325 mg PO Q4-6H PRN (Reason: Pain) RF: 0 tamsulosin 0.4 mg Capsule 0.4 mg PO BID RF: 0 allopurinol 300 mg Tablet 150 mg PO BID RF: 0 furosemide [Lasix] 20 mg Tablet 20 mg PO BID RF: 0 cholecalciferol (vitamin D3) 1,000 unit Capsule 2,000 unit PO DAILY RF: 0 omega-3 fatty acids-fish oil [Fish Oil] 300-1,000 mg Capsule 1 cap PO HS RF: 0 mirabegron [Myrbetriq] 50 mg Tablet Extended Release 24 Hr 50 mg PO DAILY RF: 0 guaifenesin 600 mg Tablet Extended Release 12hr 600 mg PO Q12H RF: 0 ipratropium-albuterol [Combivent Respimat] 20-100 mcg/actuation Mist 1 puff INHALATION QID RF: 0 Discontinued meloxicam 15 mg Tablet 15 mg PO DAILY RF: 0 lisinopril 40 mg Tablet 40 mg PO BID RF: 0 calcium carbonate-vitamin D3 [Calcium 500 + D (D3)] 500 mg(1,250mg) -125 unit Tablet 1 tab PO BID RF: 0 Referrals: UNKNOWN, [Primary Care Provider] - See Instructions (Please follow up with your primary care provider within 2-3 days.) Discharge Instructions Patient Printed Instructions: Nifedipine (By mouth), Acute Kidney Injury (GEN) Additional Instructions: Follow up with nephrology on an outpatient basis. Patient given resources on choosing a new stream control officer. Rx for Nifedipine 60mg (30) given at time of discharge. Take medications as prescribed. Your Health Problems: Goals to Promote Your Health: * To prevent worsening of your condition * To maintain your health at the optimal level Directions to Meet Your Goals: * Take your medications as prescribed * Follow your dietary instruction * Follow activity as directed * Keep your appointments as scheduled * Take your immunizations and boosters as scheduled * If your symptoms worsen call your PCP * If no PCP go to Urgent Care or Emergency Room Smoking is dangerous to your health. Avoid second hand smoke. You may reach the 24-hour crisis hotline for domestic abuse at . Status ED Status: Left Department Discharge Information Discharge Date/Time: 04/05/18 14:31
--- NOTE | 2018-04-05 12:08 | P.PNNP ---
Subjective Interval history: Seen in AM. Denies any shortness of breath, chest pain, nausea, or vomiting. Creatinine improving at 2.14. <MichellebrionnaKaterineRamona - Last Filed: 04/05/18 15:22> Physical Exam Vital signs: Vital Signs 04/04/18 13:35 04/04/18 16:00 04/04/18 19:07 Temperature 97.9 F 98.3 F Pulse Rate 93 H 88 88 Respiratory Rate 14 16 19 Blood Pressure 149/99 H 146/74 H Pulse Oximetry 91 L 93 L 04/04/18 20:00 04/04/18 21:04 04/04/18 23:42 Temperature 97.8 F Pulse Rate 89 82 92 H Respiratory Rate 12 18 Blood Pressure 162/75 H Pulse Oximetry 94 L 04/05/18 00:07 04/05/18 03:24 04/05/18 04:14 Temperature 97.9 F Pulse Rate 95 H 78 74 Respiratory Rate 18 Blood Pressure 143/72 H Pulse Oximetry 92 L 04/05/18 08:00 04/05/18 09:01 Temperature 98.3 F Pulse Rate 72 86 Respiratory Rate 16 16 Blood Pressure 133/72 Pulse Oximetry 95 Intake & Output 04/04/18 04/05/18 04/05/18 18:59 06:59 18:59 Intake Total 3000 / 3000 1480 / 1480 Output Total 1175 / 1175 1000 / 1000 Balance 1825 / 1825 480 / 480 Weight 122.8 kg Intake: IV 1999 1000 / 1000 NS Inj 1,000 ML @ 100 mls/hr IV 1999 / 1999 1000 / 1000 .CONT .Q10H GABBY Rx#:[id number] Oral 1000 / 1000 480 / 480 Output: Urine 1175 / 1175 1000 / 1000 Other: # Voids 6 2 Date of Last Bowel Movement 05/02/18 04/04/18 04/04/18 # Bowel Movements 2 0 Narrative: GENERAL: Well-developed obese male sitting up in bed in no acute distress. SKIN: Warm and dry. HEAD: Atraumatic. Normocephalic. CARDIOVASCULAR: Regular rate and rhythm. RESPIRATORY: No accessory muscle use. Faint RLL wheezing, improved, no crackles or rhonchi. Breath sounds equal bilaterally. GASTROINTESTINAL: Abdomen soft/obese, non-tender, nondistended. + Bowel sounds. MUSCULOSKELETAL: Extremities without clubbing, cyanosis. Bilateral leg edema trace edema, bilateral foot edema +1. Bilateral calf tenderness, improved. NEUROLOGICAL: Awake and alert and oriented x3. No obvious cranial nerve deficits. Motor grossly within normal limits. Normal speech. PSYCHIATRIC: Appropriate mood and affect; insight and judgment normal. <Ramona Lopez - Last Filed: 04/05/18 15:22> Assessment and Plan - Assessment (1) Acute kidney injury superimposed on chronic kidney disease Code(s): N17.9 - Acute kidney failure, unspecified; N18.9 - Chronic kidney disease, unspecified Status: Acute Plan: Acute kidney injury most likely prerenal with diuretic use. Has chronic kidney disease and baseline creatinine is not available Renal ultrasound with no acute findings. Creatinine continue to improve 3.5 ->2.75 -> 2.30->2.14 Instructed to avoid nephrotoxins including NSAIDS Oral fluids encouraged UA with no acute findings From nephrology stand point patient can be discharged but will need follow up outpatient. (2) Borderline diabetes mellitus Code(s): R73.03 - Prediabetes Status: Acute Plan: Diet controlled. Maintain BS between 140 mg/dl to 180 mg/dl (3) History of BPH Code(s): Z87.438 - Personal history of other diseases of male genital organs Status: Acute Plan: continue flomax (4) Hypertension Code(s): I10 - Essential (primary) hypertension Status: Acute Plan: Well controlled Low sodium diet. (5) Hypercalcemia Code(s): E83.52 - Hypercalcemia Status: Acute Plan: Has improved most likely related to volume depletion and replacement. <Ramona Lopez - Last Filed: 04/05/18 15:22> - Assessment (1) Acute kidney injury superimposed on chronic kidney disease Code(s): N17.9 - Acute kidney failure, unspecified; N18.9 - Chronic kidney disease, unspecified Status: Acute Plan: Patient seen and examined, agree with above. Creatinine continue to improve. If discharge , will need follow as out patient. (2) Borderline diabetes mellitus Code(s): R73.03 - Prediabetes Status: Acute (3) History of BPH Code(s): Z87.438 - Personal history of other diseases of male genital organs Status: Acute (4) Hypertension Code(s): I10 - Essential (primary) hypertension Status: Chronic (5) Hypercalcemia Code(s): E83.52 - Hypercalcemia Status: Acute <Winifred Villanueva - Last Filed: 04/06/18 20:51>
[2018-04-05 14:00] VITALS: BP 150/74; PULSE 87; TEMP 98.2; O2SAT 96
== END 2018-04-05 14:31 | disposition home or self-care (01) ==
LOC: NEPC 13:26 → NEDA 16:34 → N06 19:40
PROVIDERS: ADMIT Internal Medicine; ATTEND Internal Medicine
DX: M54.5 Low back pain; D53.9 Nutritional anemia, unspecified; I12.9 Hypertensive chronic kidney disease with stage 1 through stage 4 chronic kidney disease, or unspecified chronic kidney disease; M1A.9XX0 Chronic gout, unspecified, without tophus (tophi); Z79.1 Long term (current) use of non-steroidal anti-inflammatories (NSAID); Z68.41 Body mass index [BMI] 40.0-44.9, adult; N18.3 Chronic kidney disease, stage 3 (moderate); E87.1 Hypo-osmolality and hyponatremia; Z85.46 Personal history of malignant neoplasm of prostate; Z72.89 Other problems related to lifestyle; J44.9 Chronic obstructive pulmonary disease, unspecified; N17.9 Acute kidney failure, unspecified; G89.29 Other chronic pain; E11.22 Type 2 diabetes mellitus with diabetic chronic kidney disease; Z87.891 Personal history of nicotine dependence; E66.9 Obesity, unspecified; K92.1 Melena; E83.52 Hypercalcemia; I45.10 Unspecified right bundle-branch block; N40.0 Benign prostatic hyperplasia without lower urinary tract symptoms; Z96.653 Presence of artificial knee joint, bilateral